=== PATIENT | female | born 1970 | race Caucasian/White ===

== ENCOUNTER 2016-09-07 11:02 | Emergency (ER) | payer OTHER ==
[2016-09-07 12:30] VITALS: BP 122/73
--- NOTE | 2016-09-07 12:59 | UC ---
Throat Pain/Nasal Kenneth HPI - HPI Summary HPI Summary: has not felt well from before new years day--last night she noticed that it was difficult to swallow. talked with Sanjuanita Tovar in Dr. [place] office who advised her to get a swab for strep--unsure about fevers as she is going through menopause and gets hot flashes - History of Current Complaint Chief Complaint: UCGeneralIllness Stated Complaint: SORE THROAT Time Seen by Provider: 09/07/16 12:38 Hx Obtained From: Patient Hx Last Menstrual Period: July 2016 ?: No Onset/Duration: Gradual Onset, Lasting Days, Worse Since - last night Severity: Mild Pain Intensity: 5 Pain Scale Used: 0-10 Numeric Cough: None Associated Signs & Symptoms: Positive: Dysphagia Related History: Smoking, Prior ENT Surgery - Allergies/Home Medications Allergies/Adverse Reactions: Allergies Allergy/AdvReac Type Severity Reaction Status Date / Time Lorazepam [From Ativan] Allergy See Comment Verified 09/07/16 12:19 Oxycodone Allergy Shakes Verified 09/07/16 12:19 Penicillins [PCN] Allergy Unknown Verified 09/07/16 12:19 Reaction Details Sulfa Antibiotics Allergy Bleeding Verified 09/07/16 12:19 Sulfamethoxazole Allergy Bleeding Verified 09/07/16 12:19 w/Trimethoprim [From Bactrim] Cephalexin [From Keflex] AdvReac Diarrhea Verified 09/07/16 12:19 Clindamycin AdvReac Diarrhea Verified 09/07/16 12:19 Codeine AdvReac Altered Verified 09/07/16 12:19 Mental Status Erythromycin AdvReac Diarrhea Verified 09/07/16 12:19 Morphine AdvReac Headache Verified 09/07/16 12:19 Penicillin G AdvReac Diarrhea Verified 09/07/16 12:19 Tetracycline AdvReac Diarrhea Verified 09/07/16 12:19 ISOTOPOL GLUCOSE Allergy PT HAD Uncoded 09/07/16 12:19 VOMITING & FLU LIKE SX Home Medications: Home Medications ALPRAZolam TAB* [Xanax TAB*] 0.25 mg PO BID PRN 09/07/16 [History Confirmed 12/19] PMH/Surg Hx/FS Hx/Imm Hx Previously Healthy: No - Tonsil cancer Endocrine History Of: Denies: Diabetes Cardiovascular History Of: Denies: Hypertension, Pacemaker/ICD GI/ History Of: Denies: Renal Disease Neurological History Of: Reports: Migraine Psychological History Of: Reports: Anxiety, Depression - Surgical History Surgical History: Yes Surgery Procedure, Year, and Place: FIBROID TUMOR REMOVAL 2010 [place]. BREAST - BIOPSY - W/ MARKER PLACED - BENIGN - Family History Known Family History: Positive: Cardiac Disease, Hypertension - Social History Occupation: Employed Full-time Lives: With Family Alcohol Use: None Substance Use Type: None Smoking Status (MU): Former Smoker Type: Cigarettes Amount Used/How Often: 1/4 PPD Length of Time of Smoking/Using Tobacco: ON AND OFF 20 YRS Have You Smoked in the Last Year: No When Did the Patient Quit Smoking/Using Tobacco: 2007 - Immunization History Most Recent Influenza Vaccination: Not this season Most Recent Tetanus Shot: UNK Most Recent Pneumonia Vaccination: Never Review of Systems Constitutional: Fatigue Skin: Negative Eyes: Negative ENT: Sore Throat Respiratory: Negative Cardiovascular: Negative Gastrointestinal: Vomiting - one time with headache a couple of days ago Genitourinary: Negative Motor: Negative Neurovascular: Negative Musculoskeletal: Negative Neurological: Negative Psychological: Negative All Other Systems Reviewed And Are Negative: Yes Physical Exam Triage Information Reviewed: Yes Appearance: Well-Appearing, No Pain Distress, Thin Vital Signs: Initial Vital Signs Temp 99.6 F 09/07/16 12:21 Pulse 79 09/07/16 12:21 Resp 16 09/07/16 12:21 BP 122/73 09/07/16 12:21 Pulse Ox 100 09/07/16 12:21 Vital Signs Reviewed: Yes Eye Exam: Normal Eyes: Positive: Conjunctiva Clear ENT Exam: Normal ENT: Positive: Normal ENT inspection, Hearing grossly normal, Pharynx normal, TMs normal. Negative: Nasal congestion, Nasal drainage, Trismus, Muffled/ hoarse voice Neck exam: Normal Neck: Positive: Supple, Nontender, No Lymphadenopathy Respiratory Exam: Normal Respiratory: Positive: Chest non-tender, Lungs clear, Normal breath sounds, No respiratory distress, No accessory muscle use Cardiovascular Exam: Normal Cardiovascular: Positive: RRR, No Murmur, Pulses Normal, Brisk Capillary Refill Musculoskeletal Exam: Normal Musculoskeletal: Positive: Strength Intact, ROM Intact, No Edema Neurological Exam: Normal Neurological: Positive: Alert, Muscle Tone Normal Psychological Exam: Normal Skin Exam: Normal Diagnostics - Laboratory Diagnostic Studies Completed/Ordered: RST(-) Throat Pain/Nasal Course/Dx - Course Course Of Treatment: follow with Dr. Wallace this afternoon as planned - Differential Dx/Diagnosis Differential Diagnosis/HQI/PQRI: Otitis Media, Pharyngitis, Sinusitis, URI, Other - tonsillar cancer, dysphagia Provider Diagnoses: Dysphagia Discharge - Discharge Plan Condition: Good Disposition: HOME Patient Education Materials: Dysphagia (ED) Referrals: Ariel Wallace MD [Medical Doctor] - 09/07/16 3:15 am Mert Richard NP [Primary Care Provider] -
== END 2016-09-07 13:54 | disposition home or self-care (01) ==
LOC: UCCORT 11:02
DX: R13.10 Dysphagia, unspecified (principal); Z88.5 Allergy status to narcotic agent; Z88.0 Allergy status to penicillin; Z88.2 Allergy status to sulfonamides; Z88.8 Allergy status to other drugs, medicaments and biological substances; Z85.818 Personal history of malignant neoplasm of other sites of lip, oral cavity, and pharynx; F41.9 Anxiety disorder, unspecified; F32.9 Major depressive disorder, single episode, unspecified; Z87.891 Personal history of nicotine dependence
CPT/HCPCS: 87651; 99211; G0463

== ENCOUNTER 2017-01-29 11:31 | Emergency (ER) | payer OTHER ==
[2017-01-29 13:24] VITALS: BP 125/82
--- NOTE | 2017-01-29 14:15 | UC ---
Respiratory Complaint HPI - HPI Summary HPI Summary: ST, Cough, congestion, body aches - History of Current Complaint Chief Complaint: UCRespiratory Stated Complaint: COUGH Time Seen by Provider: 01/29/17 13:32 Hx Obtained From: Patient Hx Last Menstrual Period: 01/04/17 ?: No Onset/Duration: Gradual Onset, Lasting Days, Still Present Timing: Constant Severity Initially: Moderate Severity Currently: Moderate Pain Intensity: 5 Pain Scale Used: 0-10 Numeric Character: Cough: Nonproductive Aggravating Factors: Nothing Alleviating Factors: Nothing Associated Signs And Symptoms: Positive: Chills, Pleuritic Chest Pain, Hemoptysis - thick green with a strwak of blood - Allergies/Home Medications Allergies/Adverse Reactions: Allergies Allergy/AdvReac Type Severity Reaction Status Date / Time Penicillins [PCN] Allergy Rash Verified 01/29/17 13:26 Sulfa Antibiotics Allergy Bleeding Verified 01/29/17 13:26 Sulfamethoxazole Allergy Bleeding Verified 01/29/17 13:26 w/Trimethoprim [From Bactrim] Cephalexin [From Keflex] AdvReac Diarrhea Verified 01/29/17 13:26 Clindamycin AdvReac Diarrhea Verified 01/29/17 13:26 Codeine AdvReac Altered Verified 01/29/17 13:26 Mental Status Erythromycin AdvReac Diarrhea Verified 01/29/17 13:26 Lorazepam [From Ativan] AdvReac See Comment Verified 01/29/17 13:26 Morphine AdvReac Headache Verified 01/29/17 13:26 Oxycodone AdvReac Shakes Verified 01/29/17 13:26 Penicillin G AdvReac Diarrhea Verified 01/29/17 13:26 Tetracycline AdvReac Diarrhea Verified 01/29/17 13:26 ISOTOPOL GLUCOSE Allergy PT HAD Uncoded 09/07/16 12:19 VOMITING & FLU LIKE SX Home Medications: Home Medications Ranitidine HCl [Zantac 75] 75 mg PO BID 01/29/17 [History Confirmed 01/29/17] PMH/Surg Hx/FS Hx/Imm Hx Previously Healthy: No - Tonsil cancer Endocrine History Of: Denies: Diabetes Cardiovascular History Of: Denies: Hypertension, Pacemaker/ICD GI/ History Of: Denies: Renal Disease Neurological History Of: Reports: Migraine Psychological History Of: Reports: Anxiety, Depression - Surgical History Surgical History: Yes Surgery Procedure, Year, and Place: uterine FIBROID TUMOR REMOVAL 2010 [place] - Family History Known Family History: Positive: Cardiac Disease, Hypertension - Social History Occupation: Employed Full-time Lives: With Family Alcohol Use: None Substance Use Type: None Smoking Status (MU): Former Smoker Type: Cigarettes Amount Used/How Often: 1/4 PPD Length of Time of Smoking/Using Tobacco: ON AND OFF 20 YRS Have You Smoked in the Last Year: No When Did the Patient Quit Smoking/Using Tobacco: 2007 - Immunization History Most Recent Influenza Vaccination: Not this season Most Recent Tetanus Shot: UNK Most Recent Pneumonia Vaccination: Never Review of Systems Constitutional: Negative, Chills, Fatigue Skin: Negative Eyes: Negative ENT: Sore Throat Respiratory: Cough Cardiovascular: Negative Gastrointestinal: Negative Genitourinary: Negative Motor: Negative Neurovascular: Negative Musculoskeletal: Negative Neurological: Negative Psychological: Negative All Other Systems Reviewed And Are Negative: Yes Physical Exam Triage Information Reviewed: Yes Appearance: Well-Appearing, No Pain Distress, Well-Nourished Vital Signs: Initial Vital Signs Temp 100.1 F 01/29/17 13:18 Pulse 88 01/29/17 13:18 Resp 16 01/29/17 13:18 BP 125/82 01/29/17 13:18 Pulse Ox 100 01/29/17 13:18 Vital Signs Reviewed: Yes Eye Exam: Normal Eyes: Positive: Conjunctiva Clear ENT Exam: Normal ENT: Positive: Normal ENT inspection, Hearing grossly normal, Pharynx normal, TMs normal. Negative: Nasal congestion, Nasal drainage, Trismus, Muffled/ hoarse voice Dental Exam: Normal Neck exam: Normal Neck: Positive: Supple, Nontender, No Lymphadenopathy Respiratory Exam: Normal Respiratory: Positive: Chest non-tender, Lungs clear, Normal breath sounds, No respiratory distress, No accessory muscle use Cardiovascular Exam: Normal Cardiovascular: Positive: RRR, No Murmur, Pulses Normal, Brisk Capillary Refill Abdominal Exam: Normal Abdomen Description: Positive: Nontender, No Organomegaly, Soft Bowel Sounds: Positive: Present Musculoskeletal Exam: Normal Musculoskeletal: Positive: Strength Intact, ROM Intact, No Edema Neurological Exam: Normal Neurological: Positive: Alert, Muscle Tone Normal Psychological Exam: Normal Skin Exam: Normal UC Diagnostic Evaluation - Laboratory O2 Sat by Pulse Oximetry: 100 Respiratory Course/Dx - Course Course Of Treatment: increase fluids, rest albuterol, concider flonase and zyrtec, follow with pcp - Differential Dx/Diagnosis Differential Diagnosis/HQI/PQRI: Asthma, Bronchitis, Exacerbation Of COPD, Laryngitis, Lower Resp Infection, Sinusitis Provider Diagnoses: Bronchospasm, enviromental allergies Discharge - Discharge Plan Condition: Stable Disposition: HOME Prescriptions: Albuterol HFA INHALER* [Ventolin HFA Inhaler*] 2 puff INH Q4H PRN #1 mdi PRN Reason: cough/chest tightness Cetirizine-Pseudoephedrine [Zyrtec-D Allergy/Congesti] 1 tab PO BID #30 tab Fluticasone NASAL SPRAY 50MCG* [Flonase NASAL SPRAY 50MCG*] 2 spray BOTH NARES DAILY #1 btl Patient Education Materials: Bronchospasm (ED) Referrals: Mert Richard [employer] [Primary Care Provider] - 5 Days
== END 2017-01-29 14:14 | disposition home or self-care (01) ==
LOC: UCCORT 11:31
DX: J98.01 Acute bronchospasm (principal); Z87.891 Personal history of nicotine dependence; J30.2 Other seasonal allergic rhinitis
CPT/HCPCS: 81003; 99212; G0463

== ENCOUNTER 2017-02-01 17:53 | Emergency (ER) | payer OTHER ==
[2017-02-01 18:56] VITALS: BP 120/77
--- NOTE | 2017-02-01 19:18 | UC ---
Respiratory Complaint HPI - HPI Summary HPI Summary: pt c/o worsening productive cough, night sweats and chills X 1 week. Pt has history of cancer of the tonsils and had last chemotherapy treatment 12+ months ago. - History of Current Complaint Chief Complaint: UCRespiratory Stated Complaint: COUGH/WAS SEEN HERE RECENTLY-SYMS NOT IMPROVING Time Seen by Provider: 02/01/17 18:59 Hx Obtained From: Patient Hx Last Menstrual Period: 01/07/17 ?: No Onset/Duration: Gradual Onset, Lasting Days Timing: Constant Severity Initially: Mild Severity Currently: Mild Character: Cough: Productive - yellwo sputum Aggravating Factors: Deep Breaths, Recumbent Position Alleviating Factors: Nothing Associated Signs And Symptoms: Positive: Nasal Congestion - Risk Factors Pulmonary Embolism Risk Factors: Malignancy - tonsil cancer, last chemo 2015 - Allergies/Home Medications Allergies/Adverse Reactions: Allergies Allergy/AdvReac Type Severity Reaction Status Date / Time Penicillins [PCN] Allergy Rash Verified 02/01/17 18:45 Sulfa Antibiotics Allergy Bleeding Verified 02/01/17 18:45 Sulfamethoxazole Allergy Bleeding Verified 02/01/17 18:45 w/Trimethoprim [From Bactrim] Cephalexin [From Keflex] AdvReac Diarrhea Verified 02/01/17 18:45 Clindamycin AdvReac Diarrhea Verified 02/01/17 18:45 Codeine AdvReac Altered Verified 02/01/17 18:45 Mental Status Erythromycin AdvReac Diarrhea Verified 02/01/17 18:45 Lorazepam [From Ativan] AdvReac See Comment Verified 02/01/17 18:45 Morphine AdvReac Headache Verified 02/01/17 18:45 Oxycodone AdvReac Shakes Verified 02/01/17 18:45 Penicillin G AdvReac Diarrhea Verified 02/01/17 18:45 Tetracycline AdvReac Diarrhea Verified 02/01/17 18:45 ISOTOPOL GLUCOSE Allergy PT HAD Uncoded 02/01/17 18:45 VOMITING & FLU LIKE SX PMH/Surg Hx/FS Hx/Imm Hx Previously Healthy: Yes Cancer History: Other - tonsil Other Cancer History: tonsil - Surgical History Surgical History: Yes Surgery Procedure, Year, and Place: uterine FIBROID TUMOR REMOVAL 2010 [place] , feeding tube placement & removal - Family History Known Family History: Positive: Cardiac Disease, Hypertension - Social History Alcohol Use: None Substance Use Type: None Smoking Status (MU): Former Smoker Type: Cigarettes Amount Used/How Often: 1/4 PPD Length of Time of Smoking/Using Tobacco: ON AND OFF 20 YRS Have You Smoked in the Last Year: No When Did the Patient Quit Smoking/Using Tobacco: 2007 - Immunization History Most Recent Influenza Vaccination: Not this season Most Recent Tetanus Shot: UNK Most Recent Pneumonia Vaccination: Never Review of Systems Constitutional: Other - night sweats Skin: Negative Eyes: Negative ENT: Other - PND, nasal congestion Respiratory: Cough Cardiovascular: Negative Gastrointestinal: Negative Genitourinary: Negative Motor: Negative Neurovascular: Negative Musculoskeletal: Negative Neurological: Negative Psychological: Negative All Other Systems Reviewed And Are Negative: Yes Physical Exam Triage Information Reviewed: Yes Appearance: Well-Appearing Vital Signs: Initial Vital Signs Temp 100.2 F 02/01/17 18:46 Pulse 99 02/01/17 18:46 Resp 16 02/01/17 18:46 BP 120/77 02/01/17 18:46 Pulse Ox 100 02/01/17 18:46 Eye Exam: Normal ENT Exam: Other - PND ENT: Positive: TM bulging - bilateral Neck exam: Normal Respiratory Exam: Other Respiratory: Positive: Rhonchi Cardiovascular Exam: Normal Musculoskeletal Exam: Normal Neurological Exam: Normal Psychological Exam: Normal Skin Exam: Normal UC Diagnostic Evaluation - Laboratory O2 Sat by Pulse Oximetry: 100 Respiratory Course/Dx - Course Course Of Treatment: I discussed with the pt the findings on her chest xray and recommended that she follow up with her oncologist, Dr. Carl as soon as possible. Pt verbalized understanding and agreed to plan of care. Lungs: There are no infiltrates. There is a subtle 7 mm opacity projecting over the. periphery of the right lung apex which was not clearly evident previously. Suggest. follow-up CT imaging the chest. Lung gray otherwise clear. Pleura: There are no pleural effusions. Other: None. IMPRESSION: POSSIBLE SUBCENTIMETER RIGHT UPPER LOBE NODULE. SUGGEST FOLLOW-UP CT IMAGING. - Differential Dx/Diagnosis Differential Diagnosis/HQI/PQRI: Bronchitis Provider Diagnoses: Bronchitis. (new finding on chest xray referred to oncologist zurdo) Discharge - Discharge Plan Condition: Stable Disposition: HOME Prescriptions: Azithromycin TAB* [Zithromax TAB (Z-ABHIJEET) 250 mg #6 tabs] 2 tab PO .TODAY, THEN 1 DAILY #1 abhijeet Benzonatate CAP* [Tessalon 100 MG CAP*] 100 mg PO TID PRN #24 cap PRN Reason: Cough predniSONE TAB* [Deltasone TAB*] 20 mg PO DAILY #4 tab Patient Education Materials: Acute Bronchitis (ED) Referrals: Mert Richrad, [facility] / COOK [Primary Care Provider] - If Needed
--- NOTE | 2017-02-01 19:45 | RAD ---
INDICATION: Cough. Fever. Short of breath. COMPARISON: Chest x-ray September 23, 2014 TECHNIQUE: PA and lateral dual-energy views were obtained. FINDINGS: Bones/Soft Tissues: There are no acute bony findings. Cardiomediastinal: The cardiomediastinal silhouette is normal. Lungs: There are no infiltrates. There is a subtle 7 mm opacity projecting over the periphery of the right lung apex which was not clearly evident previously. Suggest follow-up CT imaging the chest. Lung gray otherwise clear. Pleura: There are no pleural effusions. Other: None IMPRESSION: POSSIBLE SUBCENTIMETER RIGHT UPPER LOBE NODULE. SUGGEST FOLLOW-UP CT IMAGING.
== END 2017-02-01 19:52 | disposition home or self-care (01) ==
LOC: UCCORT 17:53
DX: J40 Bronchitis, not specified as acute or chronic (principal); R91.8 Other nonspecific abnormal finding of lung field; Z85.79 Personal history of other malignant neoplasms of lymphoid, hematopoietic and related tissues; Z87.891 Personal history of nicotine dependence
CPT/HCPCS: 71020; 99212; G0463

== ENCOUNTER 2017-07-29 17:05 | Emergency (ER) | payer OTHER ==
--- NOTE | 2017-07-29 17:51 | UC ---
Skin Complaint HPI - History of Current Complaint Chief Complaint: UCGeneralIllness Time Seen by Provider: 07/29/17 17:50 Stated Complaint: THRUSH/YEAST INFECTION ALL OVER Hx Last Menstrual Period: 01/07/17 - Allergy/Home Medications Allergies/Adverse Reactions: Allergies Allergy/AdvReac Type Severity Reaction Status Date / Time Penicillins [PCN] Allergy Rash Verified 02/03/17 08:05 Sulfa Antibiotics Allergy Bleeding Verified 02/03/17 08:05 Sulfamethoxazole Allergy Bleeding Verified 02/03/17 08:05 w/Trimethoprim [From Bactrim] Cephalexin [From Keflex] AdvReac Diarrhea Verified 02/03/17 08:05 Clindamycin AdvReac Diarrhea Verified 02/03/17 08:05 Codeine AdvReac Altered Verified 02/03/17 08:05 Mental Status Erythromycin AdvReac Diarrhea Verified 02/03/17 08:05 Lorazepam [From Ativan] AdvReac See Comment Verified 02/03/17 08:05 Morphine AdvReac Headache Verified 02/03/17 08:05 Oxycodone AdvReac Shakes Verified 02/03/17 08:05 Penicillin G AdvReac Diarrhea Verified 02/03/17 08:05 Tetracycline AdvReac Diarrhea Verified 02/03/17 08:05 ISOTOPOL GLUCOSE Allergy PT HAD Uncoded 02/03/17 08:05 VOMITING & FLU LIKE SX PMH/Surg Hx/FS Hx/Imm Hx - Surgical History Surgical History: Yes Surgery Procedure, Year, and Place: uterine FIBROID TUMOR REMOVAL 2010 [place] , feeding tube placement & removal , chemo port inserted + removed, left breast biopsy - Family History Known Family History: Positive: Cardiac Disease, Hypertension - Social History Alcohol Use: None Substance Use Type: None Smoking Status (MU): Former Smoker Type: Cigarettes Amount Used/How Often: 1/4 PPD Length of Time of Smoking/Using Tobacco: ON AND OFF 20 YRS Have You Smoked in the Last Year: No When Did the Patient Quit Smoking/Using Tobacco: 2007 - Immunization History Most Recent Influenza Vaccination: Not this season Most Recent Tetanus Shot: UNK Most Recent Pneumonia Vaccination: Never Discharge - Discharge Plan Condition: Stable Disposition: HOME Referrals: Mert Richard NP [Primary Care Provider] -
[2017-07-29 17:57] VITALS: BP 137/88
--- NOTE | 2017-07-29 18:06 | UC ---
Complaint Female HPI - HPI Summary HPI Summary: 47 y/o female PMHX of Throat cancer presents to the urgent care c/o oral thrush and a rash around lips for the past 2 weeks. She also c/o white vaginal discharge for the past 3 weeks after she finished taking Z-yun Rx for sinusitis. Pt reports She used to get oral thrush due to radiation therapy for her throat cancer. However her lips are dry, cracked and rash is getting worse since yesterday. She also states mild frequency on urination. Pt denies fever, URI, SOB, sore throat,chest pain, abdominal pain,pelvic pain or lower back pain, N/V/D, Hx of STD's. No PAP for the past 5 years. Pt states she has not been sexually active fo rthe past year. LMP: 01/07/2017 - History Of Current Complaint Chief Complaint: UCGeneralIllness Stated Complaint: THRUSH/YEAST INFECTION ALL OVER Time Seen by Provider: 07/29/17 17:50 Hx Obtained From: Patient Hx Last Menstrual Period: 01/07/17 ?: No Onset/Duration: Gradual Onset, Lasting Weeks - 3, Still Present, Worse Since - yesterday Timing: Constant Severity Initially: Mild Severity Currently: Moderate Pain Intensity: 4 - oral thrush Pain Scale Used: 0-10 Numeric Character: Burning Aggravating Factor(s): Other - eating Alleviating Factor(s): Other - cocunut oil Associated Signs And Symptoms: Positive: Vaginal Discharge. Negative: Fever, Back Pain, Genital Swelling, Genital Blisters - Risk Factors Ectopic Risk Factor: Negative Ovarian Torsion Risk Factor: Negative - Allergies/Home Medications Allergies/Adverse Reactions: Allergies Allergy/AdvReac Type Severity Reaction Status Date / Time Penicillins [PCN] Allergy Rash Verified 07/29/17 17:51 Sulfa Antibiotics Allergy Bleeding Verified 07/29/17 17:51 Sulfamethoxazole Allergy Bleeding Verified 07/29/17 17:51 w/Trimethoprim [From Bactrim] Cephalexin [From Keflex] AdvReac Diarrhea Verified 07/29/17 17:51 Clindamycin AdvReac Diarrhea Verified 07/29/17 17:51 Codeine AdvReac Altered Verified 07/29/17 17:51 Mental Status Erythromycin AdvReac Diarrhea Verified 07/29/17 17:51 Lorazepam [From Ativan] AdvReac See Comment Verified 07/29/17 17:51 Morphine AdvReac Headache Verified 07/29/17 17:51 Oxycodone AdvReac Shakes Verified 07/29/17 17:51 Penicillin G AdvReac Diarrhea Verified 07/29/17 17:51 Tetracycline AdvReac Diarrhea Verified 07/29/17 17:51 ISOTOPOL GLUCOSE Allergy PT HAD Uncoded 07/29/17 17:51 VOMITING & FLU LIKE SX PMH/Surg Hx/FS Hx/Imm Hx Previously Healthy: Yes GI/ History: Gastroesophageal Reflux Other GI/ History: Hiatal hernia Other Cancer History: throat cancer - Surgical History Surgical History: Yes Surgery Procedure, Year, and Place: uterine FIBROID TUMOR REMOVAL 2010 [place] , feeding tube placement & removal , chemo port inserted + removed, left breast biopsy - Family History Known Family History: Positive: Cardiac Disease, Hypertension Family History: Stroke - Social History Occupation: Employed Full-time Lives: With Family Alcohol Use: None Substance Use Type: None Smoking Status (MU): Former Smoker Type: Cigarettes Amount Used/How Often: 1/4 PPD Length of Time of Smoking/Using Tobacco: ON AND OFF 20 YRS Have You Smoked in the Last Year: No When Did the Patient Quit Smoking/Using Tobacco: 2007 - Immunization History Most Recent Influenza Vaccination: Not this season Most Recent Tetanus Shot: UNK Most Recent Pneumonia Vaccination: Never Review of Systems Constitutional: Negative Skin: Rash - around lips Eyes: Negative ENT: Negative, Other - oral thrush Respiratory: Negative Cardiovascular: Negative Gastrointestinal: Negative Genitourinary: Frequency, Vaginal/Penile Discharge - white Motor: Negative Neurovascular: Negative Musculoskeletal: Negative Neurological: Negative Psychological: Negative Is Patient Immunocompromised?: No All Other Systems Reviewed And Are Negative: Yes Physical Exam Triage Information Reviewed: Yes Vital Signs: Initial Vital Signs Temp 98 F 07/29/17 17:52 Pulse 88 07/29/17 17:52 Resp 16 07/29/17 17:52 BP 137/88 07/29/17 17:52 Pulse Ox 100 07/29/17 17:52 - Additional Comments vital signs: reviewed General: Well developed, well nourished female sitting in the examining table w/ o any apparent distress. Head: Normocephalic, no lesions. Eyes: PERRLA, EOM's full, conjunctivae clear, fundi grossly normal. Ears: EAC's clear, TM's normal. Nose: Mucosa normal, no obstruction. Oral: tongue with mild creamy yellowish plaques adherent to the to tongue. lips with cracks, erythematous papules ab=nd crusted fssures radiating from the angles of mouth. Throat: Clear, no exudates, no lesions. Neck: Supple, no masses, no thyromegaly, no bruits. Chest: Lungs clear, no rales, no rhonchi, no wheezes. Heart: RR, no murmurs, no rubs, no gallops. Abdomen: Soft, no tenderness, no masses, BS normal. : Normal, no lesions, no discharge, no hernias noted. Pelvic: I was assisted by Nurse Polly. External genitalia within normal limits. There is no lesions there is no masses noted. Speculum exam: The vaginal reeves are within normal limits w/ normal white vaginal discharge and fishy odor, no the lesions or rashes. The cervix is closed with no lesions or masses. There is no CMT's, and no adnexal masses. Sample sent Lab for affirm panel Rectal: No lesions, no hemorrhoids, Back: Normal curvature, no tenderness. Extremities: FROM, no deformities, no edema, no erythema. Neuro: Physiological, no localizing findings. Skin: Normal, no rashes, no lesions noted. Complaint Female Dx - Course Course Of Treatment: 47 y/o female PMHX of Throat cancer presents to the urgent care c/o oral thrush and a rash around lips for the past 2 weeks. She also c/o white vaginal discharge for the past 3 weeks after she finished taking Z-yun Rx for sinusitis. Pt reports She used to get oral thrush due to radiation therapy for her throat cancer. However her lips are dry, cracked and rash is getting worse since yesterday. She also states mild frequency on urination. Pt denies fever, URI, SOB, sore throat,chest pain, abdominal pain,pelvic pain or lower back pain, N/V/D, Hx of STD's. No PAP for the past 5 years. Pt states she has not been sexually active fo rthe past year. LMP: 01/07/2017. Hx obtained. Pt with oral candidiasis and angular chelitis on examination. UA ordered, result: negative. Pt probably with Bacterial vaginosis on pelvic examination. Pt Rx Metronidazole vaginal cream. Advised to f/u with SLOT SERVICE SPECIALIST for PAP. Specimen were sent to lab, Advised she will be notified if any abnormal result from lab. Pt also Rx Diflucan PO and Nystatin/triamcinolone cream to alleviate symptoms of oral candidiasis since she skyla't tolerate oropharyngeal liquid due to sensitivity s/p radiation. Pt explained D/C instructions. Pt understood and agreed with plan of care. Pt understood and agreed with plan of care. - Differential Dx/Diagnosis Differential Diagnosis/HQI/PQRI: Cervicitis, Pelvic Inflammatory Disease, Renal Colic, Sexually Transmitted Disease, Ureteral Stone, Urinary Tract Infection Provider Diagnoses: 1- Bacterial vaginosis. 2- Oral thrush. 3-Angular chelitis Discharge - Discharge Plan Condition: Stable Disposition: HOME Prescriptions: Fluconazole [Diflucan 150 MG (NF)] 150 mg PO ONCE #2 tab metroNIDAZOLE VAGINAL 0.75%* 1 applic VAGINAL BEDTIME #1 yun Nystatin-Triamcinolone [Nystatin/Triamcinolone 994647-7.1 Unit/gm-%] 1 oin EX BID #1 oin Patient Education Materials: Bacterial Vaginosis (ED), Oral Candidiasis (ED) Referrals: Mert Richard, MANUAL LATHE OPERATOR [Primary Care Provider] - 1 Week Additional Instructions: 1-Please f/u with SLOT SERVICE SPECIALIST for a PAP for regular screening 2- Please take medications as directed to alleviate symptoms. 3- Specimen were sent to lab, if anything abnormality you will receive a call from us for further treatment. 4- F/u with PCP for further evaluation and treatment if not improvement or worsening of symptoms
--- NOTE | 2017-08-01 07:07 | ED ---
Progress - Progress Note Progress Note: trich/sophie/gardernella negative. call patient. Course/Dx - Course Course Of Treatment: 47 y/o female PMHX of Throat cancer presents to the urgent care c/o oral thrush and a rash around lips for the past 2 weeks. She also c/o white vaginal discharge for the past 3 weeks after she finished taking Z-yun Rx for sinusitis. Pt reports She used to get oral thrush due to radiation therapy for her throat cancer. However her lips are dry, cracked and rash is getting worse since yesterday. She also states mild frequency on urination. Pt denies fever, URI, SOB, sore throat,chest pain, abdominal pain,pelvic pain or lower back pain, N/V/D, Hx of STD's. No PAP for the past 5 years. Pt states she has not been sexually active fo rthe past year. LMP: 01/07/2017. Hx obtained. Pt with oral candidiasis and angular chelitis on examination. UA ordered, result: negative. Pt probably with Bacterial vaginosis on pelvic examination. Pt Rx Metronidazole vaginal cream. Advised to f/u with STRETCH PRESS OPERATOR for PAP. Specimen were sent to lab, Advised she will be notified if any abnormal result from lab. Pt also Rx Diflucan PO and Nystatin/triamcinolone cream to alleviate symptoms of oral candidiasis since she skyla't tolerate oropharyngeal liquid due to sensitivity s/p radiation. Pt explained D/C instructions. Pt understood and agreed with plan of care. Pt understood and agreed with plan of care. - Diagnoses Provider Diagnoses: Yeast dermatitis
== END 2017-07-29 19:04 | disposition home or self-care (01) ==
LOC: UCCORT 17:05
DX: B37.0 Candidal stomatitis (principal); K13.0 Diseases of lips; N76.0 Acute vaginitis; K21.9 Gastro-esophageal reflux disease without esophagitis; K44.9 Diaphragmatic hernia without obstruction or gangrene; Z85.818 Personal history of malignant neoplasm of other sites of lip, oral cavity, and pharynx; Z88.1 Allergy status to other antibiotic agents; Z88.5 Allergy status to narcotic agent; Z88.0 Allergy status to penicillin; Z88.2 Allergy status to sulfonamides; Z87.891 Personal history of nicotine dependence
CPT/HCPCS: 81003; 87480; 87510; 87660; 99212; G0463

== ENCOUNTER 2017-08-22 09:56 | Emergency (ER) | payer OTHER ==
[2017-08-22 11:03] VITALS: BP 117/75
--- NOTE | 2017-08-22 11:37 | UC ---
Respiratory Complaint HPI - HPI Summary HPI Summary: 47 y/o female presents to the urgent care c/o head congestion sinus pain,, body aches, productive cough with yellowish phlegm, nasal congestion for the past 3 days. Pt reports also mild GAXIOLA. Pt has not taking anything to alleviate symptoms. Pt denies fever, sore throat, SOB, wheezing, chest pain, abdominal pain, N/V/D - History of Current Complaint Chief Complaint: UCRespiratory Stated Complaint: CONGESTION HEAVY CHEST UPPER BACK PAIN COUGH Time Seen by Provider: 08/22/17 10:56 Hx Obtained From: Patient Hx Last Menstrual Period: 01/07/17 ?: No Onset/Duration: Gradual Onset, Lasting Days - 3 days, Still Present Timing: Constant Severity Initially: Mild Severity Currently: Mild Pain Intensity: 2 Pain Scale Used: 0-10 Numeric Character: Cough: Productive, Sputum Description: - yellowish Aggravating Factors: Nothing Alleviating Factors: Nothing Associated Signs And Symptoms: Positive: URI, Nasal Congestion. Negative: Fever , Chills, Wheezing - Risk Factors Pulmonary Embolism Risk Factors: Negative Cardiac Risk Factors: Negative Pseudomonas Risk Factors: Negative Tuberculosis Risk Factors: Negative - Allergies/Home Medications Allergies/Adverse Reactions: Allergies Allergy/AdvReac Type Severity Reaction Status Date / Time Penicillins [PCN] Allergy Rash Verified 08/22/17 10:57 Sulfa Antibiotics Allergy Bleeding Verified 08/22/17 10:57 Sulfamethoxazole Allergy Bleeding Verified 08/22/17 10:57 w/Trimethoprim [From Bactrim] Cephalexin [From Keflex] AdvReac Diarrhea Verified 08/22/17 10:57 Clindamycin AdvReac Diarrhea Verified 08/22/17 10:57 Codeine AdvReac Altered Verified 08/22/17 10:57 Mental Status Erythromycin AdvReac Diarrhea Verified 08/22/17 10:57 Lorazepam [From Ativan] AdvReac See Comment Verified 08/22/17 10:57 Morphine AdvReac Headache Verified 08/22/17 10:57 Oxycodone AdvReac Shakes Verified 08/22/17 10:57 Penicillin G AdvReac Diarrhea Verified 08/22/17 10:57 Tetracycline AdvReac Diarrhea Verified 08/22/17 10:57 ISOTOPOL GLUCOSE Allergy PT HAD Uncoded 08/22/17 10:57 VOMITING & FLU LIKE SX Home Medications: Home Medications B12 Shot ONCE 08/22/17 [History] Cyanocobalamin [B12] 1,000 mcg PO DAILY 08/22/17 [History Confirmed 08/22/17] Oreganomax 1 cap PO BID 08/22/17 [History] PMH/Surg Hx/FS Hx/Imm Hx Previously Healthy: Yes Other GI/ History: Uterine Fibroids Psychological History: Depression - Surgical History Surgical History: Yes Surgery Procedure, Year, and Place: uterine FIBROID TUMOR REMOVAL 2010 [place] , feeding tube placement & removal , chemo port inserted + removed, left breast biopsy - Family History Known Family History: Positive: Cardiac Disease, Hypertension Family History: Stroke - Social History Occupation: Employed Full-time Lives: With Family Alcohol Use: None Substance Use Type: None Smoking Status (MU): Former Smoker Type: Cigarettes Amount Used/How Often: 1/4 PPD Length of Time of Smoking/Using Tobacco: ON AND OFF 20 YRS Have You Smoked in the Last Year: No When Did the Patient Quit Smoking/Using Tobacco: 2007 - Immunization History Most Recent Influenza Vaccination: Not this season Most Recent Tetanus Shot: UNK Most Recent Pneumonia Vaccination: Never Review of Systems Constitutional: Negative Skin: Negative Eyes: Negative ENT: Nasal Discharge, Sinus Congestion Respiratory: Cough Cardiovascular: Negative Gastrointestinal: Negative Genitourinary: Negative Motor: Negative Neurovascular: Negative Musculoskeletal: Negative Neurological: Headache Psychological: Negative Is Patient Immunocompromised?: No All Other Systems Reviewed And Are Negative: Yes Physical Exam Triage Information Reviewed: Yes Vital Signs: Initial Vital Signs Temp 99.3 F 08/22/17 10:59 Pulse 84 08/22/17 10:59 Resp 18 08/22/17 10:59 BP 117/75 08/22/17 10:59 Pulse Ox 98 08/22/17 10:59 - Additional Comments VITAL SIGNS: Reviewed. GENERAL: Patient is a well developed and nourished female who is sitting comfortable in the examining table. Patient is not in any acute respiratory distress. HEAD AND FACE: No signs of trauma. No ecchymosis, hematomas or skull depressions. No sinus tenderness. edematous erythematous nasal mucosa with yellowish discharge, EYES: PERRLA, EOMI x 2, No injected conjunctiva, clear watery eyes, no nystagmus. No photophobia. EARS: Hearing grossly intact. Ear canals and tympanic membranes are within normal limits. MOUTH: Positive pharynx with erythema, no exudates,no palatal petechiae. no B/ L tonsillar enlargement Uvula in midline. NECK: Supple, trachea is midline, Positive anterior cervical lymphadenopathy, no JVD, no carotid bruit, no c-spine tenderness, neck with full ROM. No meningeal signs, no Kernig's or brudzinskis signs. CHEST: Symmetric, no tenderness at palpation LUNGS: Clear to auscultation bilaterally. No wheezing or crackles. CVS: Regular rate and rhythm, S1 and S2 present, no murmurs or gallops appreciated. ABDOMEN: Soft, non-tender. No signs of distention. No rebound no guarding, and no masses palpated. Bowel sounds are normal. EXTREMITIES: FROM in all major joints, no edema, no cyanosis or clubbing. NEURO: Alert and oriented x 3. No acute neurological deficits. Speech is normal and follows commands. SKIN: Dry and warm UC Diagnostic Evaluation - Laboratory O2 Sat by Pulse Oximetry: 98 Respiratory Course/Dx - Course Course Of Treatment: 47 y/o female presents to the urgent care c/o head congestion sinus pain,, body aches, productive cough with yellowish phlegm, nasal congestion for the past 3 days. Pt reports also mild GAXIOLA. Pt has not taking anything to alleviate symptoms. Pt denies fever, sore throat, SOB, wheezing, chest pain, abdominal pain, N/V/D. Hx obtained. Pt with an upper respiratory infection on examination. Influenza A&b ordered, result: negative.Pt Rx fluticasone nasal spray and Tessalon PO to alleviates symptoms. Advised on hand washing to avoid spreading. Pt advised to rest, eat well and avoid strenuous exercise. If symptoms do not improve or worsen advised to return to the urgent care or f/u with her PCP for further evaluation and treatment. Pt understood and agreed - Differential Dx/Diagnosis Differential Diagnosis/HQI/PQRI: Asthma, Bronchitis, Influenza, Laryngitis, Lower Resp Infection, Sinusitis, Other - URI, pharyngitis Provider Diagnoses: 1- Acute upper respiratory infection. 1- cough Discharge - Discharge Plan Condition: Stable Disposition: HOME Prescriptions: Benzonatate CAP* [Tessalon 100 MG CAP*] 100 mg PO TID PRN #15 cap PRN Reason: Cough Fluticasone NASAL SPRAY 50MCG* [Flonase NASAL SPRAY 50MCG*] 2 spray BOTH NARES DAILY #1 btl Patient Education Materials: Upper Respiratory Infection (ED) Referrals: Mert Richard INSPECTOR B[employer]KE [employer]ING [Primary Care Provider] - If Needed Additional Instructions: 1- Please increase fluid intake and rest. 2-Use Flonase as directed to help drain fluid. Also buy saline drops to clear sinuses 3-Take Tessalon PO to alleviates cough 4-Return to the clinic or PCP if symptoms do not improve for further management and treatment
== END 2017-08-22 12:50 | disposition home or self-care (01) ==
LOC: UCCORT 09:56
DX: J06.9 Acute upper respiratory infection, unspecified (principal); R05 Cough; D25.9 Leiomyoma of uterus, unspecified; F32.9 Major depressive disorder, single episode, unspecified; Z88.3 Allergy status to other anti-infective agents; Z88.5 Allergy status to narcotic agent; Z88.0 Allergy status to penicillin; Z88.2 Allergy status to sulfonamides; Z87.891 Personal history of nicotine dependence
CPT/HCPCS: 87502; 99212; G0463

== ENCOUNTER 2017-08-30 13:58 | Emergency (ER) | payer OTHER ==
[2017-08-30 15:31] VITALS: BP 153/88
--- NOTE | 2017-08-30 15:49 | UC ---
Headache HPI - HPI Summary HPI Summary: 47 year old female presents with thrush and chest congestion. - History Of Current Complaint Chief Complaint: UCRespiratory Stated Complaint: HEAD CONGESTION/ORAL COMPLAINT Time Seen by Provider: 08/30/17 15:42 Hx Obtained From: Patient Hx Last Menstrual Period: 01/07/17 Onset/Duration: Sudden Onset Onset Of Symptoms: Gradual Pain Scale Used: 0-10 Numeric - 4 Timing: Constant Character: Sharp Aggravating Factor(s): Nothing Allevating Factor(s): Nothing - Risk Factors SAH Risk Factors: Negative Meningitis Risk Factors: Negative SDH Risk Factors: Negative Temporal Arteritis Risk Factors: Negative - Allergies/Home Medications Allergies/Adverse Reactions: Allergies Allergy/AdvReac Type Severity Reaction Status Date / Time Penicillins [PCN] Allergy Rash Verified 08/30/17 15:31 Sulfa Antibiotics Allergy Bleeding Verified 08/30/17 15:31 Sulfamethoxazole Allergy Bleeding Verified 08/30/17 15:31 w/Trimethoprim [From Bactrim] Cephalexin [From Keflex] AdvReac Diarrhea Verified 08/30/17 15:31 Clindamycin AdvReac Diarrhea Verified 08/30/17 15:31 Codeine AdvReac Altered Verified 08/30/17 15:31 Mental Status Erythromycin AdvReac Diarrhea Verified 08/30/17 15:31 Lorazepam [From Ativan] AdvReac See Comment Verified 08/30/17 15:31 Morphine AdvReac Headache Verified 08/30/17 15:31 Oxycodone AdvReac Shakes Verified 08/30/17 15:31 Penicillin G AdvReac Diarrhea Verified 08/30/17 15:31 Tetracycline AdvReac Diarrhea Verified 08/30/17 15:31 ISOTOPOL GLUCOSE Allergy PT HAD Uncoded 08/30/17 15:31 VOMITING & FLU LIKE SX PMH/Surg Hx/FS Hx/Imm Hx - Surgical History Surgical History: Yes Surgery Procedure, Year, and Place: uterine FIBROID TUMOR REMOVAL 2010 [place] , feeding tube placement & removal , chemo port inserted + removed, left breast biopsy - Family History Known Family History: Positive: Cardiac Disease, Hypertension Family History: Stroke - Social History Alcohol Use: None Substance Use Type: None Smoking Status (MU): Former Smoker Type: Cigarettes Amount Used/How Often: 1/4 PPD Length of Time of Smoking/Using Tobacco: ON AND OFF 20 YRS Have You Smoked in the Last Year: No When Did the Patient Quit Smoking/Using Tobacco: 2007 - Immunization History Most Recent Influenza Vaccination: Not this season Most Recent Tetanus Shot: UNK Most Recent Pneumonia Vaccination: Never Review of Systems Constitutional: Negative Skin: Negative Eyes: Negative ENT: Other - thrush Respiratory: Cough Cardiovascular: Negative Gastrointestinal: Negative Genitourinary: Negative Motor: Negative Neurovascular: Negative Musculoskeletal: Negative Neurological: Negative Psychological: Negative All Other Systems Reviewed And Are Negative: Yes Physical Exam Triage Information Reviewed: Yes Vital Signs: Initial Vital Signs Temp 37.3 C 08/30/17 15:26 Pulse 100 08/30/17 15:26 Resp 17 08/30/17 15:26 BP 153/88 08/30/17 15:26 Pulse Ox 100 08/30/17 15:26 Vital Signs Reviewed: Yes Eye Exam: Normal ENT: Positive: Other - thrush Dental Exam: Normal Neck exam: Normal Neck: Positive: 1 Respiratory: Positive: Wheezing Cardiovascular Exam: Normal Abdominal Exam: Normal Musculoskeletal Exam: Normal Neurological Exam: Normal Psychological Exam: Normal Skin Exam: Normal Headache Course/Dx - Differential Dx/Diagnosis Provider Diagnoses: thrush. wheezing Discharge - Discharge Plan Condition: Stable Disposition: HOME Prescriptions: Albuterol HFA INHALER* [Ventolin HFA Inhaler*] 1 puff INH Q6H PRN #1 mdi PRN Reason: Cough Chlorhexidine MOUTHWASH 0.12%* [Peridex Mouth Wash 0.12%*] 15 ml MT TID #1 btl Nystatin SUSPENSION ORAL SYR* 10 ml PO QID #1 bottle Patient Education Materials: Oral Candidiasis (ED), Allergic Rhinitis (ED) Referrals: Mert Richard NP [Primary Care Provider] - Ariel Wallace MD [Medical Doctor] -
== END 2017-08-30 15:57 | disposition home or self-care (01) ==
LOC: UCCORT 13:58
DX: B37.9 Candidiasis, unspecified (principal); R06.2 Wheezing; Z87.891 Personal history of nicotine dependence
CPT/HCPCS: 99212; G0463

== ENCOUNTER 2018-05-11 19:19 | Emergency (ER) | payer OTHER ==
--- NOTE | 2018-05-11 21:05 | UC ---
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 Samuel. She states that every time she gets ill she worries that it could be something to do with cancer. About 3 weeks ago, she had a choking spell on some food and thinks she may have aspirated. Since then, she's had some ongoing cough with chest congestion and clear sputum. She wants to ensure it is not aspiration pneumonia. She also reports having had head congestion with clear drainage. In addition to this, 2 days ago she developed a sore throat. She goes on to complain of having subjective chills, abdominal distention 3 days which is now much improved but no N/V/D. She complains of pressure in her ears plus some ringing in her ears. She notes that she does have chronic ringing in her ears. She also reports having a headache. She denies any vomiting diarrhea or dysuria. She has no cp or sob and no wheezing. She has a follow up appt with Dr Samuel this coming Monday as well. - History of Current Complaint Chief Complaint: UCGeneralIllness Stated Complaint: CHILLS,SORE THROAT,LOW ENERGY Time Seen by Provider: 05/11/18 20:51 Hx Obtained From: Patient Hx Last Menstrual Period: 03/21 Pain Intensity: 0 Associated Signs & Symptoms: Positive: Cough, Headache. Negative: Abdominal Pain, Chest Pain, Diarrhea, Dysuria, Fever, Hemoptysis, Nausea, SOB, Vomiting, Wheezing - Allergy/Home Medications Allergies/Adverse Reactions: Allergies Allergy/AdvReac Type Severity Reaction Status Date / Time cephalexin Allergy Diarrhea Verified 05/11/18 20:30 clindamycin Allergy Diarrhea Verified 05/11/18 20:30 codeine Allergy Altered Verified 05/11/18 20:30 Mental Status erythromycin base Allergy Diarrhea Verified 05/11/18 20:30 lorazepam Allergy See Comment Verified 05/11/18 20:30 morphine Allergy Headache Verified 05/11/18 20:30 oxycodone Allergy Shakes Verified 05/11/18 20:30 Penicillins Allergy Rash Verified 05/11/18 20:30 Sulfa (Sulfonamide Allergy Bleeding Verified 05/11/18 20:30 Antibiotics) sulfamethoxazole Allergy Bleeding Verified 05/11/18 20:30 [From Bactrim] Tetracyclines Allergy Diarrhea Verified 05/11/18 20:30 trimethoprim [From Bactrim] Allergy Bleeding Verified 05/11/18 20:30 ISOTOPOL GLUCOSE Allergy PT HAD Uncoded 08/30/17 15:31 VOMITING & FLU LIKE SX Home Medications: Home Medications Aspirin/Caffeine [Bc Arthritis Powder Packet] 1 each PO BID PRN 05/11/18 [ History Confirmed 05/11/18] PMH/Surg Hx/FS Hx/Imm Hx - Additional Past Medical History Additional PMH: Tonsilar [place]. Ringing of the ears, [place] - Surgical History Surgical History: Yes Surgery Procedure, Year, and Place: uterine FIBROID TUMOR REMOVAL 2010 [place] , feeding tube placement & removal , chemo port inserted + removed, left breast biopsy - Family History Known Family History: Positive: Cardiac Disease, Hypertension Family History: Stroke - Social History Occupation: Employed Full-time Lives: With Family Alcohol Use: None Substance Use Type: None Smoking Status (MU): Former Smoker Type: Cigarettes Amount Used/How Often: 1/4 PPD Length of Time of Smoking/Using Tobacco: ON AND OFF 20 YRS Have You Smoked in the Last Year: No When Did the Patient Quit Smoking/Using Tobacco: 2007 - Immunization History Most Recent Influenza Vaccination: Not this season Most Recent Tetanus Shot: UNK Most Recent Pneumonia Vaccination: Never Vaccination Up to Date: Yes Review of Systems Constitutional: Chills Skin: Negative Eyes: Negative ENT: Sore Throat, Ear Ache - pressure, Nasal Discharge, Sinus Congestion Respiratory: Cough Cardiovascular: Negative Gastrointestinal: Negative Genitourinary: Negative Motor: Negative Neurovascular: Negative Musculoskeletal: Negative Neurological: Headache Psychological: Negative Is Patient Immunocompromised?: No All Other Systems Reviewed And Are Negative: Yes Physical Exam Triage Information Reviewed: Yes Vital Signs: Initial Vital Signs Temp 99.4 F 05/11/18 20:34 Pulse 88 05/11/18 20:34 Resp 18 05/11/18 20:34 BP 145/94 05/11/18 20:34 Pulse Ox 100 05/11/18 20:34 Diagnostics - Laboratory Diagnostic Studies Completed/Ordered: RAPID STREP=NEG. - Radiology No standard instances Xray Interpretation: No Acute Changes - WET READ=NAD Course/Dx - Course Course Of Treatment: Patient is nontoxic. Rapid strep is negative. CXR is unremarkable. No acute abdomen. Her physical exam is reassuring and she already has a f/u appt with Dr Samuel this coming Monday. Her BP was mildly elevated at triage. Repeat BP has improved to 138/90. I think the BP is visit related.Pt is anxious about her CA hx and worries that any illness could mean it has reoccured. There is no indication for ER transfer and can f/u as scheduled. - Differential Dx - Multi-Symptom Provider Diagnoses: General malaise Discharge - Sign-Out/Discharge Documenting (check all that apply): Patient Departure All imaging exams completed and their final reports reviewed: No - Discharge Plan Condition: Stable Disposition: HOME Patient Education Materials: Upper Respiratory Infection (ED), Pharyngitis (ED) , Acute Cough (ED) Referrals: Mert Richard NP [Primary Care Provider] - If Needed Naresh Arciniega MD [Medical Doctor] - 3 Days - Billing Disposition and Condition Condition: STABLE Disposition: Home
[2018-05-11 21:44] VITALS: BP 138/90
--- NOTE | 2018-05-12 08:14 | RAD ---
Indication: Cough, congestion. 2 views of the chest including dual energy PA views are reviewed. No mediastinal shift is noted. Lung gray appear hyperinflated with no evidence of pleural fluid, pneumonia or pneumothorax. The heart is of normal size and configuration. Bony structures are grossly unremarkable. Overall no changes noted since February 01, 2017. IMPRESSION: Hyperinflated lung gray with no active cardiopulmonary disease. R0
--- NOTE | 2018-05-12 09:05 | UC ---
- Progress Note Progress Note: CXR official read negative Discharge - Sign-Out/Discharge Documenting (check all that apply): Post-Discharge Follow Up All imaging exams completed and their final reports reviewed: Yes - Discharge Plan Condition: Stable Disposition: HOME Patient Education Materials: Pharyngitis (ED), Upper Respiratory Infection (ED) , Acute Cough (ED) Referrals: Naresh Arciniega MD [Medical Doctor] - 3 Days Mert Richard NP [Primary Care Provider] - If Needed - Billing Disposition and Condition Condition: STABLE Disposition: Home
== END 2018-05-11 22:02 | disposition home or self-care (01) ==
LOC: UCCORT 19:19
DX: R53.81 Other malaise (principal); Z85.818 Personal history of malignant neoplasm of other sites of lip, oral cavity, and pharynx; Z87.891 Personal history of nicotine dependence; Z88.3 Allergy status to other anti-infective agents; Z88.5 Allergy status to narcotic agent; Z88.8 Allergy status to other drugs, medicaments and biological substances; Z88.0 Allergy status to penicillin; Z88.2 Allergy status to sulfonamides
CPT/HCPCS: 71046; 87651; 99211; G0463

== ENCOUNTER 2019-01-30 12:01 | Emergency (ER) | payer OTHER ==
[2019-01-30 12:34] VITALS: BP 142/84
--- NOTE | 2019-01-30 12:59 | ED ---
Skin Complaint - HPI Summary HPI Summary: 48 yr old female with tick bite. The tick was removed this morning. The tick was not engorged. She is not sure when the tick attached. She has a dog and a cat. The area has very localized redness to it. She has multiple antibiotic allergies. - History of Current Complaint Chief Complaint: UCBiteInjury Time Seen by Provider: 01/30/19 12:44 Stated Complaint: TICK CONCERN Hx Last Menstrual Period: 03/21 Pain Intensity: 5 - Allergy/Home Medications Allergies/Adverse Reactions: Allergies Allergy/AdvReac Type Severity Reaction Status Date / Time cephalexin Allergy Diarrhea Verified 01/30/19 12:35 clindamycin Allergy Diarrhea Verified 01/30/19 12:35 codeine Allergy Altered Verified 01/30/19 12:35 Mental Status erythromycin base Allergy Diarrhea Verified 01/30/19 12:35 lorazepam Allergy See Comment Verified 01/30/19 12:35 morphine Allergy Headache Verified 01/30/19 12:35 oxycodone Allergy Shakes Verified 01/30/19 12:35 Penicillins Allergy Rash Verified 01/30/19 12:35 Sulfa (Sulfonamide Allergy Bleeding Verified 01/30/19 12:35 Antibiotics) sulfamethoxazole Allergy Bleeding Verified 01/30/19 12:35 [From Bactrim] Tetracyclines Allergy Diarrhea Verified 01/30/19 12:35 trimethoprim [From Bactrim] Allergy Bleeding Verified 01/30/19 12:35 ISOTOPOL GLUCOSE Allergy PT HAD Uncoded 01/30/19 12:35 VOMITING & FLU LIKE SX Home Medications: Home Medications Levothyroxine Sodium 25 mcg PO DAILY 01/30/19 [History Confirmed 01/30/19] PMH/Surg Hx/FS Hx/Imm Hx Endocrine/Hematology History: Denies: Hx Diabetes Cardiovascular History: Denies: Hx Hypertension, Hx Pacemaker/ICD History: Denies: Hx Renal Disease Sensory History: Reports: Hx Contacts or Glasses, Hx Hearing Aid - MILENA, 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 Opthamlomology History: Reports: Hx Contacts or Glasses Neurological History: Reports: Hx Headaches, Hx Migraine Psychiatric History: Reports: Hx Anxiety, Hx Depression Denies: Hx Panic Disorder - Cancer History Cancer Type, Location and Year: tonsilar cancer w/ chemo & radiation September 2014 Hx Chemotherapy: Yes Hx Radiation Therapy: Yes - Left Tonsil-not to breast Hx Palliative Cancer Treatment: No - Surgical History Surgery Procedure, Year, and Place: uterine FIBROID TUMOR REMOVAL 2010 [place] , feeding tube placement & removal , chemo port inserted + removed, left breast biopsy Hx Anesthesia Reactions: No Infectious Disease History: Yes Infectious Disease History: Reports: Hx Shingles - age 17 Denies: Hx Clostridium Difficile, Hx Hepatitis, Hx Human Immunodeficiency Virus (HIV), Hx of Known/Suspected MRSA, Hx Tuberculosis, Hx Known/Suspected VRE , Hx Known/Suspected VRSA, History Other Infectious Disease, Traveled Outside the [place] in Last 30 Days - Family History Known Family History: Positive: Cardiac Disease, Hypertension Family History: Stroke - Social History Lives: With Family Alcohol Use: Rare Substance Use Type: Reports: None Smoking Status (MU): Former Smoker Type: Cigarettes Amount Used/How Often: 1/4 PPD Length of Time of Smoking/Using Tobacco: ON AND OFF 20 YRS Have You Smoked in the Last Year: No Review of Systems Constitutional: Negative Positive: Other - tick bite All Other Systems Reviewed And Are Negative: Yes Physical Exam Triage Information Reviewed: Yes Vital Signs On Initial Exam: Initial Vitals Temp Pulse Resp BP Pulse Ox 99.5 F 101 16 142/84 100 01/30/19 12:29 01/30/19 12:29 01/30/19 12:29 01/30/19 12:29 01/30/19 12:29 Vital Signs Reviewed: Yes Appearance: Positive: Well-Appearing, No Pain Distress Skin: Positive: Warm, Skin Color Reflects Adequate Perfusion, Other - the right posterior shoulder area is with a localized tick bite reaction. The area is with just a less than 1 cm localized area of redness. There is no expanding redness, erythema migrans or bulls eye rash. No remainin foreign body seen. The tick was brought in a bag and it is not engorged. Head/Face: Positive: Normal Head/Face Inspection Eyes: Positive: EOMI, COLE ENT: Positive: Normal ENT inspection Neck: Positive: Nontender Respiratory/Lung Sounds: Positive: Clear to Auscultation, Breath Sounds Present Cardiovascular: Positive: RRR Abdomen Description: Negative: Distended Musculoskeletal: Positive: Strength/ROM Intact Neurological: Positive: Sensory/Motor Intact, Alert, Oriented to Person Place, Time, CN Intact II-III Psychiatric: Positive: Normal Diagnostics - Vital Signs Vital Signs Temp Pulse Resp BP Pulse Ox 01/30/19 12:29 99.5 F 101 16 142/84 100 - Laboratory Lab Statement: Any lab studies that have been ordered have been reviewed, and results considered in the medical decision making process. Course/Dx - Course Course Of Treatment: 48 yr old with localized reaction to tick bite. No antibiotics at this time. She has multiple allergies as well. She was told to take a picture of the area with cell phone and to monitor the area for any increasing redness rash and to follow up with primary doctor or return here for any changes or concerns. - Diagnoses Provider Diagnoses: Tick bite, Hypertension Discharge - Sign-Out/Discharge Documenting (check all that apply): Patient Departure All imaging exams completed and their final reports reviewed: No Studies - Discharge Plan Condition: Good Disposition: HOME Patient Education Materials: Tick Bite (ED), Hypertension (ED) Referrals: Mert Richard NP [Primary Care Provider] - 2 Days Additional Instructions: Be sure to see your primary care doctor within two days for a blood pressure recheck and another look at your tick bite area. - Billing Disposition and Condition Condition: GOOD Disposition: Home
== END 2019-01-30 13:07 | disposition home or self-care (01) ==
LOC: UCCORT 12:01
DX: S40.261A Insect bite (nonvenomous) of right shoulder, initial encounter (principal); I10 Essential (primary) hypertension; W57.XXXA Bitten or stung by nonvenomous insect and other nonvenomous arthropods, initial encounter; Z87.891 Personal history of nicotine dependence; Z79.899 Other long term (current) drug therapy; Z88.1 Allergy status to other antibiotic agents; Z88.5 Allergy status to narcotic agent; Z88.0 Allergy status to penicillin; Z88.2 Allergy status to sulfonamides; Z88.8 Allergy status to other drugs, medicaments and biological substances
CPT/HCPCS: 99211; G0463

== ENCOUNTER 2019-03-26 20:33 | Emergency (ER) | payer OTHER ==
[2019-03-26 20:45] VITALS: BP 134/80
--- NOTE | 2019-03-26 21:22 | UC ---
Minor Trauma HPI - HPI Summary HPI Summary: 48-year-old female who was playing with her grandchildren this evening approximately 2 hours prior to arrival when she had been running with them and fell and that they tackled her she complains of pain to the lower right ribs and side underneath her breast. - History of Current Complaint Chief Complaint: UCGeneralIllness Stated Complaint: RIB PAIN Time Seen by Provider: 03/26/19 20:39 Hx Obtained From: Patient Hx Last Menstrual Period: ~a year ago ?: No Onset/Duration: Sudden Onset Onset Of Pain: Post Accident Severity Initially: Mild Severity Currently: Moderate Pain Intensity: 8 Mechanism Of Injury: Fall From A Standing Position - Patient states that she was running with her grandkids playing soccer and she fell and then states that they were wrestling with her and then they tackled her. Aggravating Factor(s): Movement Alleviating Factor(s): Rest - Allergies/Home Medications Allergies/Adverse Reactions: Allergies Allergy/AdvReac Type Severity Reaction Status Date / Time cephalexin Allergy Diarrhea Verified 03/26/19 20:39 clindamycin Allergy Diarrhea Verified 03/26/19 20:39 codeine Allergy Altered Verified 03/26/19 20:39 Mental Status erythromycin base Allergy Diarrhea Verified 03/26/19 20:39 lorazepam Allergy See Comment Verified 03/26/19 20:39 morphine Allergy Headache Verified 03/26/19 20:39 oxycodone Allergy Shakes Verified 03/26/19 20:39 Penicillins Allergy Rash Verified 03/26/19 20:39 Sulfa (Sulfonamide Allergy Bleeding Verified 03/26/19 20:39 Antibiotics) sulfamethoxazole Allergy Bleeding Verified 03/26/19 20:39 [From Bactrim] Tetracyclines Allergy Diarrhea Verified 03/26/19 20:39 trimethoprim [From Bactrim] Allergy Bleeding Verified 03/26/19 20:39 ISOTOPOL GLUCOSE Allergy PT HAD Uncoded 03/26/19 20:39 VOMITING & FLU LIKE SX PMH/Surg Hx/FS Hx/Imm Hx Previously Healthy: Yes Endocrine History: Thyroid Disease Cancer History: Other - Tonsillar cancer. - Surgical History Surgical History: Yes Surgery Procedure, Year, and Place: uterine FIBROID TUMOR REMOVAL 2010 [place] , feeding tube placement & removal , chemo port inserted + removed, left breast biopsy - Family History Known Family History: Positive: Cardiac Disease, Hypertension Family History: Stroke - Social History Alcohol Use: Rare Substance Use Type: None Smoking Status (MU): Former Smoker Type: Cigarettes Amount Used/How Often: 1/4 PPD Length of Time of Smoking/Using Tobacco: ON AND OFF 20 YRS Have You Smoked in the Last Year: No When Did the Patient Quit Smoking/Using Tobacco: 2007 - Immunization History Most Recent Influenza Vaccination: Not this season Most Recent Tetanus Shot: UNK Most Recent Pneumonia Vaccination: Never Vaccination Up to Date: Yes Review of Systems All Other Systems Reviewed And Are Negative: Yes Skin: Positive: Negative Respiratory: Positive: Negative Cardiovascular: Positive: Negative Motor: Positive: Negative Neurovascular: Positive: Negative Musculoskeletal: Positive: Other: - Patient complains of pain to the right lower ribs and across underneath both breasts. She denies any head injury and no neck pain. He denies back pain. Neurological: Positive: Negative Psychological: Positive: Negative Is Patient Immunocompromised?: No Physical Exam Triage Information Reviewed: Yes Appearance: Well-Appearing, No Pain Distress, Well-Nourished Vital Signs: Initial Vital Signs Temp 99.7 F 03/26/19 20:40 Pulse 83 03/26/19 20:40 Resp 16 03/26/19 20:40 BP 134/80 03/26/19 20:40 Pulse Ox 100 03/26/19 20:40 Vital Signs Reviewed: Yes Neck: Positive: Supple, Nontender, No Lymphadenopathy - C-spine nontender Respiratory: Positive: Lungs clear, Normal breath sounds, No respiratory distress, No accessory muscle use - Mild tenderness on palpation to the right lower rib area. No crepitus, no erythema, deformity or bruising. No swelling. Cardiovascular: Positive: RRR, No Murmur, Pulses Normal, Brisk Capillary Refill Abdomen Description: Positive: Nontender, No Organomegaly, Soft. Negative: CVA Tenderness (R), CVA Tenderness (L) Bowel Sounds: Positive: Present Musculoskeletal: Positive: Strength Intact, ROM Intact, Other: - Spine is nontender on palpation, hips are nontender. Has full range of motion of her extremities. Neurological Exam: Normal Neurological: Positive: Alert, Muscle Tone Normal Psychological Exam: Normal Skin Exam: Normal Minor Trauma Course/Dx - Course Course Of Treatment: Chest x-ray as interpreted by myself and Dr. Ogden is negative. She is to apply ice to the sore areas, she may take Tylenol every 4 hours and Motrin every 8 hours for pain. Definite follow-up with her primary care provider if no improvement in 3 or 4 days. She is to go to the emergency room if she has any difficulty breathing, chest pain or worsening symptoms. The patient has been sitting comfortably in the room. - Differential Dx/Diagnosis Provider Diagnosis: Right-sided chest wall pain Discharge - Sign-Out/Discharge Documenting (check all that apply): Patient Departure All imaging exams completed and their final reports reviewed: No - Discharge Plan Condition: Fair Disposition: HOME Patient Education Materials: Chest Wall Pain (ED) Referrals: Mert Richard NP [Primary Care Provider] - Additional Instructions: May take Tylenol every 4 hours and Motrin every 8 hours for pain. Apply ice to the sore areas. Follow-up with your primary care provider if no improvement in 3 or 4 days. Go to the emergency room if you have any difficulty breathing, chest pain or shortness of breath. - Billing Disposition and Condition Condition: FAIR Disposition: Home
--- NOTE | 2019-03-27 10:41 | UC ---
- EKG/XRAY/CT Xray Comments: wet read correct Course/Dx - Diagnoses Provider Diagnoses: Right-sided chest wall pain Discharge - Sign-Out/Discharge Documenting (check all that apply): Post-Discharge Follow Up All imaging exams completed and their final reports reviewed: Yes - Discharge Plan Condition: Fair Disposition: HOME Patient Education Materials: Chest Wall Pain (ED) Referrals: Mert Richard NP [Primary Care Provider] - Additional Instructions: May take Tylenol every 4 hours and Motrin every 8 hours for pain. Apply ice to the sore areas. Follow-up with your primary care provider if no improvement in 3 or 4 days. Go to the emergency room if you have any difficulty breathing, chest pain or shortness of breath. - Billing Disposition and Condition Condition: FAIR Disposition: Home
== END 2019-03-26 21:32 | disposition home or self-care (01) ==
LOC: UCCORT 20:33
DX: R07.89 Other chest pain (principal); Z88.5 Allergy status to narcotic agent; Z85.818 Personal history of malignant neoplasm of other sites of lip, oral cavity, and pharynx; Z87.891 Personal history of nicotine dependence
CPT/HCPCS: 71046; 99211; G0463

== ENCOUNTER 2019-07-25 18:23 | Emergency (ER) | payer OTHER ==
--- OUTSIDE RECORDS SUMMARY | 2019-07-25 19:13 | XMS REPORT | Continuity of Care Document ---
:1970 External Reference #:[id number] Author Name Radha Astudillo NP (transmitted by agent of provider Linda Truong) Address [address] [facility], [place] [address] Care Team Providers Name Role Phone Mert Richard NP - Family Care Team Information Apartment Coordinator [phone] Problems Active Problems Provider Date Malignant tumor of tonsil Dmitri Arciniega M.D. Onset: 01/05/2015 Oropharyngeal dysphagia Dmitri Arciniega M.D. Onset: 01/05/2015 Headache Dmitri Arciniega M.D. Onset: 08/31/2015 Localized swelling, mass and lump, head Dmitri Arciniega M.D. Onset: 05/23 Sensorineural hearing loss Dmitri Arciniega M.D. Onset: 01/09/2017 Atypical facial pain Dmitri Arciniega M.D. Onset: 10/02/2017 Stomatitis Dmitri Arciniega M.D. Onset: 10/02/2017 Edema of larynx Dmitri Arciniega M.D. Onset: 07/16/2018 Bilateral tinnitus Dmitri Arciniega M.D. Onset: 11/20/2018 Social History Type Date Description Comments Sex Unknown Cigarette Use Quit 5 Years Ago Tobacco Use Start: Unknown Never Smoked Cigars Tobacco Use Start: Unknown Never Smoked A Pipe Smokeless Tobacco Never Used Smokeless Tobacco ETOH Use Denies alcohol use ETOH Use except for occasional social Tobacco Use Start: Unknown End: Patient is a former smoker Unknown Recreational Drug Use Denies Drug Use Tobacco Use Start: Unknown <1/2 ppd x ~25 years Tobacco Use Start: Unknown quit 2008 Smoking Status Reviewed: 02/19/19 quit 2008 Exercise Type/Frequency Does not exercise Allergies, Adverse Reactions, Alerts Active Allergies Reaction Severity Comments Date Penicillin diarrhea 09/08/2014 Tetracycline diarrhea 09/08/2014 Erythromycin diarrhea 09/08/2014 Bactrim 09/08/2014 Codeine confusion 09/08/2014 Morphine and Related headache 09/08/2014 Keflex Hives 12/04/2018 Medications Active Medications SIG Qnty Indications Ordering Date Provider Zantac 150 Maximum 150 mg by mouth 120tabs K21.9 Dmitri 02/19/2019 Strength twice a day Tessie Arciniega 150mg Tablets Nystatin 5 mL every 4 200ml K12.30 Dmitri 02/19/2019 [id number]/ML hours félix and Tessie Arciniega Suspension swallow Levothyroxine Sodium 50mcg by mouth 30tabs Walter Hatch MD 12/21/2018 daily on empty 50mcg Tablets stomach Pt is taking 2 tabs by mouth daily Xanax one by mouth up Unknown 0.25mg Tablets to two times daily as needed for anxiety Feverfew 2 po q am and 1 Unknown 380mg Capsules po q hs. Radha Capsule 1 capsule by Unknown mouth daily Hair Flewance Capsule 1 capsule by Unknown mouth daily Magnesium 1 tab by mouth Unknown daily Multi Vitamin Daily 1 by mouth every Unknown day Tablets Vitamin B12 1 by mouth every Unknown 100mcg day Tablets Medications Administered in Office Medication SIG Qnty Indications Ordering Provider Date Depomedrol 20MG Dmitri Arciniega M.D. 10/02/2017 Injection B-12 Injection Suzi Vines M.D. 08/14/2017 Injection Immunizations Description No Information Available Vital Signs Date Vital Result Comment 06/04/2019 7:50am Height 66 inches 5'6" Weight 140.00 lb Heart Rate 88 /min BP Systolic 137 mmHg BP Diastolic 90 mmHg O2 % BldC Oximetry 100 % BMI (Body Mass Index) 22.6 kg/m2 04/23/2019 10:39am Height 66 inches 5'6" Weight 136.00 lb Heart Rate 78 /min BP Systolic 140 mmHg BP Diastolic 90 mmHg Respiratory Rate 18 /min Pain Level 0 BMI (Body Mass Index) 21.9 kg/m2 Results Test Date Facility Test Result H/L Range Note Laboratory test 06/04/2019 [facility] Vitamin B6 <pending> finding [address] [place] [address] [phone] Vitamin D Total 25(Oh) <pending> Zinc Serum <pending> Selenium <pending> Vitamin B12 And Folate 06/04/2019 [facility] Vitamin B12 < pending> Serum [address] [place] [address] [phone] Folic Acid (Folate) <pending> Thyroid Panel 06/04/2019 [facility] Free T4 (Free <pending> DRIVE Thyroxine) [place] [address] [phone] Thyroxine <pending> TSH (Thyroid Stim Horm) <pending> Laboratory test finding 06/04/2019 [facility] Magnesium <pending > [address] [place] [address] [phone] Progesterone <pending> T3 Free <pending> T3 Reverse <pending> T3 Total <pending> Laboratory test 06/04/2019 [facility] Hemoglobin A1c <pending> finding [address] (Glyco HGB) [place] [address] [phone] Homocysteine <pending> Insulin Level <pending> Laboratory test 06/04/2019 [facility] Copper, Serum <pending> finding [address] [place] [address] [phone] Dhea Sulfate <pending> Estradiol <pending> Estriol Unconjugated <pending> Ferritin <pending> Laboratory test 06/04/2019 [facility] CRP High Sensitivity < pending> [place] [address] [place] [address] [phone] Anti-Thyroid 06/04/2019 [facility] Thyroperoxidase AB <pending> [place] [address] [phone] Thyroglobulin AB <pending> Laboratory test 06/04/2019 [facility] HCG <pending> finding [address] [place] [address] [phone] FSH And LH 06/04/2019 [facility] FSH (Follicle <pending> Stim Hormone) [place] [address] [phone] LH (Lutenizing Hormone) <pending> Procedures Date Code Description Status 04/23/2019 72343 Fibroptic Laryngoscopy Completed 02/19/2019 67562 Fibroptic Laryngoscopy Completed Medical Devices Description No Information Available Encounters Type Date Location Provider Dx Diagnosis Office Visit 04/23/2019 [facility], R49.0 Dysphonia 10:30a [facility] J37.0 Chronic laryngitis K12.30 Oral mucositis (ulcerative), unspecified Office Visit 02/19/2019 [facility] K12.30 Oral mucositis 11:00a Of [facility] AT Tessie Arciniega (ulcerative)[facility] unspecified R49.0 Dysphonia J37.0 Chronic laryngitis K21.9 Gastro-esophageal reflux disease without esophagitis Office Visit 12/21/2018 [facility], E03.9 Hypothyroidism, 12:00p Endocrinology of unspecified [employer] Z85.818 Prsnl hx of malig neoplm of site of lip, oral cav, & pharynx Office Visit 12/04/2018 [facility] K12.30 Oral mucositis 10:15a Of [facility] AT Tessie Arciniega (ulcerative)[facility] unspecified H90.5 Unspecified sensorineural hearing loss H93.13 Tinnitus, bilateral Z85.818 Prsnl hx of malig neoplm of site of lip, oral cav, & pharynx Assessments Date Code Description Provider 06/04/2019 R53.83 Other fatigue Radha Astudillo NP 06/04/2019 N95.1 Menopausal and female climacteric states Radha Astudillo NP 06/04/2019 G89.4 Chronic pain syndrome Radha Astudillo NP 06/04/2019 E03.9 Hypothyroidism, unspecified Radha Astudillo NP 06/04/2019 J37.0 Chronic laryngitis Radha Astudillo NP 06/04/2019 K59.00 Constipation, unspecified Radha Astudillo NP 04/23/2019 R49.0 Dysphonia Dmitri Arciniega M.D. 04/23/2019 J37.0 Chronic laryngitis Dmitri Arciniega M.D. 04/23/2019 K12.30 Oral mucositis (ulcerative), unspecified Dmitri Arciniega M.D. 02/19/2019 K12.30 Oral mucositis (ulcerative), unspecified Dmitri Arciniega M.D. 02/19/2019 R49.0 Dysphonia Dmitri Arciniega M.D. 02/19/2019 J37.0 Chronic laryngitis Dmitri Arciniega M.D. 02/19/2019 K21.9 Gastro-esophageal reflux disease without Dmitri Arciniega M.D. esophagitis 12/21/2018 E03.9 Hypothyroidism, unspecified Walter Hatch MD 12/21/2018 Z85.818 Prsnl hx of malig neoplm of site of lip, Walter Hatch MD oral cav, & pharynx 12/04/2018 K12.30 Oral mucositis (ulcerative), unspecified Dmitri Arciniega M.D. 12/04/2018 H90.5 Unspecified sensorineural hearing loss Dmitri Arciniega M.D. 12/04/2018 H93.13 Tinnitus, bilateral Dmitri Arciniega M.D. 12/04/2018 Z85.818 Personal history of malignant neoplasm of Dmitri Arciniega M.D. other sites of lip Plan of Treatment Future Appointment(s):06/25/2019 10:00 am - Radha Astudillo NP at [facility]06/04/2019 - Radha Astudillo, NPR53.83 Other fatigueFollow up:follow up in 3 weeks 45 minutesRecommendations:Fatigue is multi-factorial food sensitivities can play a role. An elimination diet is a validated approach to try to pin point food sensitivities. Increase healthy fats in the diet with cold pressed extra virgin olive oil, flax seed, hemp oil, fish oil (wild caught EPA/DHA). Nuts, seeds, avocado. Stress can play a large role in fatigue. Daily stress relaxation techniques. Sleep: sleeping 8 hours a day. Exercise: 30-60 minutes daily of exercise. Keeping your blood sugar stable removing high glycemic foods. Adrenal fatigue (HPA [place] dysregulation) - Lifestyle changes can make a difference. 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 Sleep is very important as is diet and exercise. Consider stress reduction techniques. Screening Tests: It is important to be up to date on your screening tests for your age Good Resources Dr. Aaron Qiuroga - Ketotarian Cookbook Dr. Randy Echols - two books: The Kinza protocol and her cookbook: Cooking for Life- The PaleSenionLab Way website - [email or web address] - FREE 10 week course. HIGHLY Recommend. Plus great education blg, videos, recipes. Paleo, AIP diet, FODMAP, GAPS diet Dr. Hudson two great cookbooks!! fat for fuel or KetoFast - has multiple soup healthy recipes that would begreat for you! What is AIP? The Paleo Autoimmune Protocol (AIP) is a way of eating to heal the gut wall, restore gut macarena and in doing so reduce the chronic inflammatory response of the immune systemthat results in the destruction of tissue in autoimmune diseases. The main focus of the AIP is to heal the gut wall, restore digestive function, resolve microbial imbalances, restore nutrient deficiencies and support the body??s own pathways of detoxification. To do this, foods that commonly trigger an immune response are eliminated from the diet, for a period of time until symptoms have gone into remission. If there are any particular foods that you are allergic or sensitive to, even though they??re on the foods to include list, then they need to be omitted for the time being as well. There is afocus on particularly nutrient dense foods like bone broths, fermented veggies, organ meats, oily fish and oysters and a big emphasis on having a large amount of rainbow colored veggies ( sometimes starting with cooked ones only if your digestion is struggling). So rather than solely focusing on the diagnosis and treating the symptomatic organ ?? like the thyroid for example ?? we need to put a huge emphasis on healing the gut. Of course you may still need some pharmaceutical support to get the affected organ or system functioning properly again, preventing further tissue damage and providing relief for what can be some really severe symptoms Foods that can negatively impact immune function: Lectins: Lectins are carbohydrate- binding proteins that are present in all foods but can be difficult todigest and increase gut barrier damage. Toxic lectins are found in legumes and grains. Soaking, sprouting, and fermenting decrease lectin content. Phytic Acid: phytic acid is a component of grains, seeds, and legumes that limits the activity of digestive enzymes. This can damage the gut barrier and contribute to dysbiosis. Soaking, sprouting, and fermenting decrease phytic content. Gluten: gluten evangelist component of many grain products such as wheat, barley and rye. Exposure to gluten can activate zonulin in the intestines and contribute to intestinal permeability. Lactose and Casein: certain components of milk can contribute to intestinal permeability, especially if they have gone through traditional pasteurization and homogenization. The negative effects of the resulting protein changes can be decreased, as in the case of grass fed milk from cows. Nightshades: These plants contain an alkaloid that can be detrimental to the intestinal barrier. Nightshades include tomatoes, peppers, and eggplants.N95.1 Menopausal and female climacteric statesRecommendations:Recommend hormone testing Engaging any mindfulness practice daily will also help heal your HPA axis dysregulation. guided meditation, consider [facility] christine STRESS FREE. Consider MBSR (mindfulness-Based Stress Reduction) 8 week program this year. offered in [facility] every few months. Consider FREE MBSR online program: [email or web address] Do ??4-7-8?? breathing: Breathe in through nose for 4 counts Hold your breath for 7 counts Exhale through mouth for 8 counts This combination of count ratio slows heart rate and relaxes the sympathetic nervous system. Adopt yoga practice- Available reviews of a wide range of yoga practices suggest they can reduce the impact of exaggerated stress responses and may be helpful for both anxiety and depression. In this respect, yoga functions like other self-soothing techniques , such as meditation, relaxation, exercise, or even socializing with friends. By reducing perceived stress and anxiety, yoga appears to modulate stress response systems. This, in turn, decreases physiological arousal ?? for example , reducing the heart rate, lowering blood pressure, and easing respiration. There is also evidence that yoga practices help increase heart rate variability , an indicator of the body's ability to respond to stress moreflexibly. Recommended reading: The hormone care by Claudine Jang MD Brain body diet by Claudine Jang MDG89.4 Chronic pain syndromeRecommendations:Nutrient Support for Inflammation: Foster-3 fatty acids - 2000 mg/day (non GMO, low Mercury fish oil) Turmeric - 1000 mg/day split in several doses Vitamin C 1000 - 2000 mg mg day Zinc 15 mg day N-acetyl cysteine 600 mg twice daily Vitamin D 2000 units/ day CuraPro by [employer] 750 mg - Take 1 capsule twice daily. Please take with food. Potent anti-inflammatory support for daily use or as needed. if you take this you do not need to take the turmeric Osteovantiv by [employer]. 1 cap twice daily with food. UC II collagen has been shown in clinical studies to improve joint qdaaheihT01.9 Hypothyroidism, unspecifiedRecommendations:Plan to check [id number] Chronic laryngitisRecommendations:Consider buying Instant pot (pressure cooker) Consider buying Bone FrisqM63.00 Constipation, unspecifiedRecommendations:If the digestive system is working properly, we have maximum absorption of nutrients, resulting in energy and vitality. When the digestive system is not working well, we have bloating, systemic inflammation, skin rashes, food sensitivities, constipation, abdominal discomfort, fatigue, and many other diverse non-specific symptoms such as headaches, poor mood, joint pain, muscle fatigue, etc. The digestive tract may become compromised with a diet high in refined sugar, a diet low in fiber, as well asantibiotics, medications, stress, parasitic infections, bacterial infections, nutrient deficiencies,and alcohol use. These mechanisms may promote inflammation of the intestinal tract and lead to increased intestinal permeability. What is SIBO ? SIBO occurs when the bacteria that normally live in the colon move backwards, up into the small intestine (where they are not supposed to be in high numbers) and an overgrowth develops. It can also occur when the small amount of bacteria normally present in the small intestines overgrows. When the bacteria are in the small intestine, THEY start digesting and fermenting your food (instead of YOU digesting and absorbing your food), creating gas, bloating, and malabsorption for the host. What are the symptoms? Extreme bloating (many people say they look 6months ) Constipation, diarrhea, or both Abdominal pain, tenderness, or discomfort Burping and/or farting Nausea Acid reflux Gastroparesis (like food is just sitting in stomach, won??t go down- feels like a brick in the stomach) Food sensitivities or intolerances Leaky gut Anxiety & depression (very common for SIBO ?? the LPS in the bacterial cell wall (endotoxins) increase inflammatory cytokines, which affect mood) Brain fog How do you test for SIBO? Unfortunately, insurance doesn't tend to cover this test we offer in the office. We use the company [employer] and it will test for the two types of SIBO - Methane and Hydrogen. The cost is $179. We recommend you send the test in with your payment and can ask the company for a bill that you can submit to your insurance. You can pay the testin full or they will let you split the payment into 4 payments. Please contact the company if you have any questions and review the handout we have provided for you. plan for stool test and sibo test in 4 weeks after antibiotics Functional Status Description No Information Available Mental Status Description No Information Available Referrals Refer to Dr Delgado for Referral Status Appt Date Radha Astudillo FNP-C Sent 06/04/2019 [address], [address] [place] [address] [phone]
--- OUTSIDE RECORDS SUMMARY | 2019-07-25 19:13 | XMS REPORT | Continuity of Care Document ---
:1970 External Reference #:[id number] Author Name Radha Astudillo NP (transmitted by agent of provider Sandra Arguello) Address [address], [place] [address] Care Team Providers Name Role Phone Mert Richard NP - Family Care Team Information Field Manager [phone] Problems Active Problems Provider Date Malignant tumor [...] ~25 years Tobacco Use Start: Unknown quit 2009 Smoking Status Reviewed: 07/12/19 quit 2008 Exercise Type/Frequency Does not exercise Allergies, Adverse Reactions, Alerts Active Allergies Reaction Severity Comments Date Penicillin diarrhea 09/08/2014 Tetracycline diarrhea 09/08/2014 Erythromycin diarrhea 09/08/2014 Bactrim 09/08/2014 Codeine confusion 09/08/2014 Morphine and Related headache 09/08/2014 Keflex Hives 12/04/2018 Medications Active Medications SIG Qnty Indications Ordering Provider Date Levothyroxine Sodium 50mcg by mouth 30tabs Walter Hatch MD 12/21/2018 daily on empty 50mcg Tablets stomach Pt is taking 2 tabs by mouth daily Xanax one by mouth up Unknown 0.25mg Tablets to two times daily as needed for anxiety Radha Capsule 1 capsule by Unknown mouth daily Magnesium 1 tab by mouth Unknown daily Vitamin B12 1 by mouth every Unknown 100mcg day Tablets History Medications Zantac 150 Maximum 150 mg by mouth 120tabs K21.9 Dmitri 02/19/2019 - Strength twice a day Tessie Arciniega 07/12/2019 150mg Tablets Nystatin 5 mL every 4 200ml K12.30 Dmitri 02/19/2019 - hours swish and Tessie Arciniega 07/12/2019 [id number] swallow Suspension Medications Administered in Office Medication SIG Qnty Indications Ordering Provider Date Depomedrol 20MG Dmitri Arciniega M.D. 10/02/2017 Injection B-12 Injection Suzi Vines M.D. 08/14/2017 Injection Immunizations Description No Information Available Vital Signs Date Vital Result Comment 07/12/2019 9:54am Height 66 inches 5'6" Weight 135.38 lb Heart Rate 76 /min BP Systolic 145 mmHg BP Diastolic 82 mmHg Body Temperature 97.4 F O2 % BldC Oximetry 99 % BMI (Body Mass Index) 21.8 kg/m2 06/04/2019 7:50am Height 66 inches 5'6" Weight 140.00 lb Heart Rate 88 /min BP Systolic 137 mmHg BP Diastolic 90 mmHg O2 % BldC Oximetry 100 % BMI (Body Mass Index) 22.6 kg/m2 Results Test Acquired Date Facility Test Result H/L Range Note Laboratory test 07/12/2019 [facility] T3 Free <pending> finding [address] [place] [address] [phone] T3 Reverse <pending> T3 Total <pending> Thyroid Panel 07/12/2019 [facility] Free T4 (Free <pending> DATES DRIVE Thyroxine) [place] [address] [phone] Thyroxine <pending> TSH (Thyroid Stim Horm) <pending> Celiac Hla 07/05/2019 [facility] [id number] SEE BELOW [address] [place] [address] [phone] [id number] SEE BELOW 2 Celiac Gene Pairs Present? No Celiac Gene Interpretation See Comment 3 Laboratory test 07/05/2019 [facility] T3 Reverse 16 ng/dL 10- 24 4 [place] [address] [phone] Vitamin B6 07/05/2019 [facility] Pyridoxal 6 g/L 5-[address] [facility] 5-[place] [address] [phone] Pyridoxic Acid 3 g/L 3-30 6 Laboratory test 07/05/2019 [facility] Estradiol, <10 pg/mL [address] Confirmatory, [place] [address] [phone] Transglutaminase Igg 07/05/2019 [facility] Tissue <1.2 U/mL [address] I[address] [facility] Transglutaminase [place] [address] Ab [phone] Tissue Transglutaminase IgG Ab 1.3 U/mL 9 Anti Gliadin Igg And Iga 07/05/2019 [facility] Gliadin IgG < 10.0 U 10 [place] [address] [phone] Gliadin IgA <10.0 U 11 Laboratory test 07/05/2019 [facility] Homocysteine 8 mcmol/L 12 [place] [address] [phone] Dhea Sulfate 199 g/dL 27-240 13 Estriol Unconjugated <0.07 ng/mL <0.08 14 Copper, Serum 1.06 g/mL 0.75-1.45 15 Selenium 153 ng/mL Abnormal 70-150 16 Zinc Serum 0.77 g/mL 0.66-1.10 17 Arthritis Panel 07/05/2019 [facility] Uric Acid 3.4 mg/dL Normal 2.3-6.6 [address] [place] [address] [phone] Rheumatoid Factor < 10 IU/mL Normal <15 Erythrocyte Sed Rate 6 mm/Hr Normal 0-29 Anti-Nuclear Antibody 0.5 U 18 Cyclic Citrullinated Peptide <15.6 U 19 Interpretation See Comment 20 Heavy Metal Blool 07/05/2019 [facility] Arsenic 3 ng/mL 0-12 21 [address] [place] [address] [phone] Lead 1.8 g/dL 0.0-4.9 22 Mercury <1 ng/mL 0-9 23 Cadmium 0.2 ng/mL 0.0-4.[address] [place] [address] Guardian First Name KAROLINA Diamond Guardian Last Name [facility] Venous/Capillary Heavy Metals Venous Patient Race WHITE Submitting Laboratory 25 Laboratory test 07/05/2019 [facility] CRP High 0.57 mg/L < 2.[address] [facility] [place] [address] [phone] Thyroxine 8.79 g/dL Normal 6.09-12.23 27 Ferritin 19.5 ng/mL Normal 11-307 28 T3 Free 3.20 pg/mL Normal 2.5-3.9 29 Folic Acid (Folate) 8.40 ng/mL >3.99 30 Insulin Level 6.9 mcIU/mL Normal 2.0-16.0 31 Thyroperoxidase AB 0.50 IU/mL Normal <9 32 Vitamin D Total 25(Oh) 33.1 ng/mL Normal 20-50 33 Estradiol <40 pg/mL 34 Vitamin B12 655 pg/mL Normal 180-914 35 Thyroglobulin AB 0.6 IU/mL <4.0 36 Free T4 (Free Thyroxine) 1.26 ng/dL High 0.61-1.12 37 T3 Total 134 ng/dL Normal 87-178 38 TSH (Thyroid Stim Horm) 0.03 mcIU/mL Low 0.34-5.60 39 Iron & Iron Binding 07/05/2019 [facility] Iron 34 g/dL Low 50-212 [address]acity [address] [place] [address] [phone] Unsaturated Iron Binding < 328 g/dL Total Iron Binding Capacity 343 g/dL Normal 250-450 Transferrin 245 mg/dL Normal 203-362 % Iron Saturation 10 % Low 15-55 Laboratory test 07/05/2019 [facility] Magnesium 1.9 mg/dL Normal 1.9-2.7 40 finding [address] [place] [address] [phone] Lipid Profile 07/05/2019 [facility] Triglycerides 52 mg/dL 41 (Trig/Chol/HDL) [address] [place] [address] [phone] Cholesterol 185 mg/dL 42 HDL Cholesterol 65.0 mg/dL 43 LDL Cholesterol 110 mg/dL 44 Comp Metabolic 07/05/2019 [facility] Sodium 143 mmol/L Normal 135-145 Panel [address] [place] [address] [phone] Potassium 4.1 mmol/L Normal 3.5-5.0 Chloride 107 mmol/L Normal 101-111 Co2 Carbon Dioxide 31 mmol/L Normal 22-32 Anion Gap 5 mmol/L Normal 2-11 Glucose 67 mg/dL Low 70-100 Blood Urea Nitrogen 11 mg/dL Normal 6-24 Creatinine 0.57 mg/dL Normal 0.51-0.95 BUN/Creatinine Ratio 19.3 Normal 8-20 Calcium 9.5 mg/dL Normal 8.6-10.3 Total Protein 6.1 g/dL Low 6.4-8.9 Albumin 4.3 g/dL Normal 3.2-5.2 Globulin 1.8 g/dL Low 2-4 Albumin/Globulin Ratio 2.4 Normal 1-3 Total Bilirubin 0.30 mg/dL Normal 0.2-1.0 Alkaline Phosphatase 57 U/L Normal 34-104 Alt 9 U/L Normal 7-52 Ast 11 U/L Low 13-39 Egfr Non- 112.3 >60 Egfr 135.8 >60 45 Laboratory test 07/05/2019 [facility] Progesterone 0.3 ng/mL 46 [address] [place] [address] [phone] Hemoglobin A1c (Glyco HGB) 5.3 % Normal 4.0-5.6 47 HCG 0.69 mIU/mL 48 FSH (Follicle Stim Hormone) 95.6 mIU/mL 49 LH (Lutenizing Hormone) 27.9 mIU/mL 50 CBC Auto 07/05/2019 [facility] White Blood 8.1 10^3/uL Normal 3.5-10.[address] [place] [address] [phone] Red Blood Count 4.02 10^6/uL Normal 3.70-4.87 Hemoglobin 11.7 g/dL Low 12.0-16.0 Hematocrit 35 % Normal 35-47 Mean Corpuscular Volume 88 fL Normal 80-97 Mean Corpuscular Hemoglobin 29 pg Normal 27-31 Mean Corpuscular HGB Conc 33 g/dL Normal 31-36 Red Cell Distribution Width 14 % Normal 10-15 Platelet Count 225 10^3/uL Normal 150-450 Mean Platelet Volume 9.0 fL Normal 7.4-10.4 Abs Neutrophils 6.8 10^3/uL Normal 1.5-7.7 Abs Lymphocytes 0.7 10^3/uL Low 1.0-4.8 Abs Monocytes 0.5 10^3/uL Normal 0-0.8 Abs Eosinophils 0.1 10^3/uL Normal 0-0.6 Abs Basophils 0.0 10^3/uL Normal 0-0.2 Abs Nucleated RBC 0.0 10^3/uL Granulocyte % 84.1 % Lymphocyte % 8.6 % Monocyte % 5.6 % Eosinophil % 1.3 % Basophil % 0.4 % Nucleated Red Blood Cells % 0.0 Laboratory test 06/04/2019 [facility] Hemoglobin A1c <pending> finding [address] (Glyco HGB) [place] [address] [phone] Homocysteine <pending> Insulin Level <pending> Laboratory test finding 06/04/2019 [facility] Magnesium <pending > [address] [place] [address] [phone] Progesterone <pending> T3 Free <pending> T3 Reverse <pending> T3 Total <pending> Thyroid Panel 06/04/2019 [facility] Free T4 (Free <pending> [address] DR[address] Thyroxine) [place] [address] [phone] Thyroxine <pending> TSH (Thyroid Stim Horm) <pending> Vitamin B12 And Folate 06/04/2019 [facility] Vitamin B12 < pending> Serum [address] [place] [address] [phone] Folic Acid (Folate) <pending> Laboratory test finding 06/04/2019 [facility] Vitamin B6 < pending> [address] [place] [address] [phone] Vitamin D Total 25(Oh) <pending> Zinc Serum <pending> Selenium <pending> Laboratory test 06/04/2019 [facility] Copper, Serum <pending> finding [address] [place] [address] [phone] Dhea Sulfate <pending> Estradiol <pending> Estriol Unconjugated <pending> Ferritin <pending> Laboratory test 06/04/2019 [facility] CRP High Sensitivity < pending> finding [address] [place] [address] [phone] Anti-Thyroid 06/04/2019 [facility] Thyroperoxidase AB <pending> Antibodies [place] [address] [phone] Thyroglobulin AB <pending> Laboratory test 06/04/2019 [facility] HCG <pending> finding [address] [place] [address] [phone] FSH And LH 06/04/2019 [facility] FSH (Follicle <pending> DRIVE Stim Hormone) [place] [address] [phone] LH (Lutenizing Hormone) <pending> 1 RESULT: 03,05 REFERENCE VALUE Not Applicable 2 RESULT: 03:01,03:03 DQ Serologic Equivalent: 7,9 REFERENCE VALUE Not Applicable 3 The absence of HLA celiac permissive genes would make the presence of celiac disease unlikely. ADDITIONAL INFORMATION Method: Molecular typing of HLA antigens performed using reverse SSOP and/or SSP methods, reported as serological equivalents and low to medium resolution molecular values. Test Performed by: [facility] - [address] [address] Active Directory Specialist: Zachery Lou M.D. Ph.D.; CLIA# [id number] 4 ADDITIONAL INFORMATION This test was developed and its performance characteristics determined by [facility] in a manner consistent with CLIA requirements. This test has not been cleared or approved by the U.S. Food and Drug Administration. Test Performed by: [facility] [place] [address] Active Directory Specialist: Zachery Lou M.D. Ph.D.; CLIA# [id number] 5 ADDITIONAL INFORMATION This test was developed and its performance characteristics determined by [facility] in a manner consistent with CLIA requirements. This test has not been cleared or approved by the U.S. Food and Drug Administration. 6 ADDITIONAL INFORMATION This test was developed and its performance characteristics determined by [facility] in a manner consistent with CLIA requirements. This test has not been cleared or approved by the U.S. Food and Drug Administration. Test Performed by: [facility] [place] [address] Active Directory Specialist: Zachery Lou M.D. Ph.D.; CLIA# [id number] 7 REFERENCE VALUE Premenopausal: 15-350 (E2 levels vary widely through the menstrual cycle.) Postmenopausal: <10 ADDITIONAL INFORMATION This test was developed and its performance characteristics determined by [facility] in a manner consistent with CLIA requirements. This test has not been cleared or approved by the U.S. Food and Drug Administration. Test Performed by: [facility] [place] [address] Active Directory Specialist: Zachery Lou M.D. Ph.D.; CLIA# [id number] 8 REFERENCE VALUE <4.0 (Negative) 9 REFERENCE VALUE <6.0 (Negative) Test Performed by: [facility] [place] [address] Active Directory Specialist: Zachery Lou M.D. Ph.D.; CLIA# [id number] 10 REFERENCE VALUE <20.0 (Negative) Test Performed by: [facility] [place] [place] [address] Active Directory Specialist: Zachery Lou M.D. Ph.D.; CLIA# [id number] 11 REFERENCE VALUE <20.0 (Negative) 12 REFERENCE VALUE <=13 (Fasting) ADDITIONAL INFORMATION This test was developed and its performance characteristics determined by [facility] in a manner consistent with CLIA requirements. This test has not been cleared or approved by the U.S. Food and Drug Administration. Test Performed by: [facility] - [address] [address] Active Directory Specialist: Zachery Lou M.D. Ph.D.; CLIA# [id number] 13 Test Performed by: [facility] [place] [address] Active Directory Specialist: Zachery Lou M.D. Ph.D.; CLIA# [id number] 14 Test Performed by: [facility] [place] [place] [address] Active Directory Specialist: Zachery Lou M.D. Ph.D.; CLIA# [id number] 15 ADDITIONAL INFORMATION This test was developed and its performance characteristics determined by [facility] in a manner consistent with CLIA requirements. This test has not been cleared or approved by the U.S. Food and Drug Administration. Test Performed by: [facility] [place] [place] [address] Active Directory Specialist: Zachery Lou M.D. Ph.D.; CLIA# [id number] 16 ADDITIONAL INFORMATION This test was developed and its performance characteristics determined by [facility] in a manner consistent with CLIA requirements. This test has not been cleared or approved by the U.S. Food and Drug Administration. Test Performed by: [facility] [place] [address] Active Directory Specialist: Zachery Lou M.D. Ph.D.; CLIA# [id number] 17 ADDITIONAL INFORMATION This test was developed and its performance characteristics determined by [facility] in a manner consistent with CLIA requirements. This test has not been cleared or approved by the U.S. Food and Drug Administration. Test Performed by: [facility] [place] [place] [address] Active Directory Specialist: Zachery Lou M.D. Ph.D.; CLIA# [id number] 18 REFERENCE VALUE <=1.0 (Negative) 19 REFERENCE VALUE <20.0 (Negative) 20 Tests for antibodies to dsDNA and GARTH antigens are not performed automatically unless the LUKAS result is > or = 3.0 U. Studies performed at [facility] indicate that positive LUKAS results <3.0 U are rarely accompanied by positive second order tests. Test Performed by: [facility] [place] [address] Active Directory Specialist: Zachery Lou M.D. Ph.D.; CLIA# [id number] 21 ADDITIONAL INFORMATION This test was developed and its performance characteristics determined by [facility] in a manner consistent with CLIA requirements. This test has not been cleared or approved by the U.S. Food and Drug Administration. 22 ADDITIONAL INFORMATION Testing performed by Inductively Coupled Plasma-Mass Spectrometry (ICP-MS). This test was developed and its performance characteristics determined by [facility] in a manner consistent with CLIA requirements. This test has not been cleared or approved by the U.S. Food and Drug Administration. 23 ADDITIONAL INFORMATION This test was developed and its performance characteristics determined by [facility] in a manner consistent with CLIA requirements. This test has not been cleared or approved by the U.S. Food and Drug Administration. 24 ADDITIONAL INFORMATION This test was developed and its performance characteristics determined by [facility] in a manner consistent with CLIA requirements. This test has not been cleared or approved by the U.S. Food and Drug Administration. 25 Test Performed by: [facility] - [facility] [address] [place] [address] Active Directory Specialist: Zachery Lou M.D. Ph.D.; CLIA# [id number] 26 FASTING 27 FASTING 28 FASTING 29 FASTING 30 FASTING 31 FASTING 32 FASTING 33 Total 25-Hydroxyvitamin D2 and D3 (25-OH-VitD) <10 ng/mL (severe deficiency) 10-19 ng/mL (mild to moderate deficiency) 20-50 ng/mL (optimum levels) 51-80 ng/mL (increased risk of hypercalciuria) >80 ng/mL (toxicity possible) 34 Estradiols <40 pg/mL are sent to a reference lab for low range testing. Postmenopausal Females < 20 Ovulating females: by day in cycle relative to LH Peak Follicular phase - 12 10-50 - 4 60-200 Mid-cycle - 1 120-375 Luteal phase + 2 50-155 + 6 60-260 + 12 15-115 35 Normal Range 180 to 914 Indeterminate Range 145 to 180 Deficient Range <145 36 FASTING 37 FASTING 38 FASTING 39 FASTING 40 FASTING 41 Desirable: <150 Borderline High: 150-199 High: 200-499 Very High: >500 42 Desirable: <200 Borderline High: 200-239 High: >239 43 Low: <40 Desirable: 40-60 High: >60 44 Desirable: <100 Near Optimal: 100-129 Borderline High: 130-159 High: 160-189 Very High: >189 45 Because ethnic data is not always readily available, this report includes an eGFR for both -Americans and non- Americans. The National Kidney Disease Education Program (NKDEP) does not endorse the use of the MDRD equation for patients that are not between the ages of 18 and 70, are , have extremes of body size, muscle mass, or nutritional status, or are non- or non-. According to the National Kidney Foundation, irrespective of diagnosis, the stage of the disease is based on the level of kidney function: Stage Description GFR(mL/min/1.73 m(2)) 1 Kidney damage with normal or decreased GFR 90 2 Kidney damage with mild decrease in GFR 60-89 3 Moderate decrease in GFR 30-59 4 Severe decrease in GFR 15-29 5 Kidney failure <15 (or dialysis) 46 Female reference ranges for Progesterone: Follicular phase.......0.3 - 1.5 ng/ml Mid-luteal phase.......5.2 - 18.5 ng/ml Postmenopausal.........< 0.8 ng/ml 1st trimester.........4.7 - 50.0 ng/ml 2nd trimester.........19.4 - 45.3 ng/ml 47 Therapeutic target for the treatment of diabetes mellitus patients is <7% HBA1C, and in selective patients <6.0%. Please refer to [place] [employer] diabetic care guidelines for further information. 48 <5.0 Negative 5.0 - 25.0 Indeterminate (Repeat testing recommended after 72 hours) >25.0 Positive Perimenopausal women can display HCG levels of up to 20 mIU/mL 49 Normally menstruating females - Follicular phase 3 - 9 - Mid-cycle peak 4 - 23 - Luteal phase 1 - 6 Postmenopausal females 16 - 114 50 Normally menstruating females - Follicular Phase 1 - 18 - Mid-Cycle Peak 24 - 105 - Luteal Phase 0.6 - 20 Postmenopausal females 15 - 62 Procedures Date Code Description Status 04/23/2019 36412 Fibroptic Laryngoscopy Completed 02/19/2019 14132 Fibroptic Laryngoscopy Completed Medical Devices Description No Information Available Encounters Type Date Location Provider Dx Diagnosis Office Visit 06/04/2019 [facility] Radha Astudillo NP R53.83 Other fatigue 8:00a [facility] N95.1 Menopausal and female climacteric states G89.4 Chronic pain syndrome E03.9 Hypothyroidism, unspecified J37.0 Chronic laryngitis K59.00 Constipation, unspecified Office Visit 04/23/2019 10:30a [facility], R49.0 Dysphonia [facility] J37.0 Chronic laryngitis K12.30 Oral mucositis (ulcerative), unspecified Office Visit 02/19/2019 [facility] K12.30 Oral mucositis 11:00a Of [facility] Tessie Arciniega (ulcerative), Emile unspecified R49.0 Dysphonia J37.0 Chronic laryngitis K21.9 Gastro-esophageal reflux disease without esophagitis Assessments Date Code Description Provider 07/12/2019 R53.83 Other fatigue Radha Astudillo, TAILERCPA 07/12/2019 N95.1 Menopausal and female climacteric states Radha Astudillo, TAILERCPA 07/12/2019 E03.9 Hypothyroidism, unspecified Radha Astudillo, TAILERCPA 06/04/2019 R53.83 Other fatigue Radha Astudillo, TAILERCPA 06/04/2019 N95.1 Menopausal and female climacteric states Radha Astudillo, TAILERCPA 06/04/2019 G89.4 Chronic pain syndrome Radha Astudillo, TAILERCPA 06/04/2019 E03.9 Hypothyroidism, unspecified Radha Astudillo, TAILERCPA 06/04/2019 J37.0 Chronic laryngitis Radha Astudillo, TAILERCPA 06/04/2019 K59.00 Constipation, unspecified Radha Astudillo, TAILERCPA 04/23/2019 R49.0 Dysphonia Dmitri Arciniega M.D. 04/23/2019 J37.0 Chronic laryngitis Dmitri Arciniega M.D. 04/23/2019 K12.30 Oral mucositis (ulcerative), unspecified Dmitri Arciniega M.D. 02/19/2019 K12.30 Oral mucositis (ulcerative), unspecified Dmitri Arciniega M.D. 02/19/2019 R49.0 Dysphonia Dmitri Arciniega M.D. 02/19/2019 J37.0 Chronic laryngitis Dmitri Arciniega M.D. 02/19/2019 K21.9 Gastro-esophageal reflux disease without Dmitri Arciniega M.D. esophagitis Plan of Treatment Future Appointment(s):07/22/2019 9:00 am - Ariana Echevarria N.P. at [facility]08/07/2019 10:00 am - Radha Astudillo NP at [facility]07/12/2019 - Radha Astudillo, NPR53.83 Other fatigueFollow up:follow up in 3-4 weeks (45 mins) [facility] takes two weeks back to me - call the office the ofappointment and make sure I have the results!! Go to lab in [place] - repeat your thyroid labs - hold medication. Then I will upload to portal. Or I can call you and we will decide about thyroid medication Wellevate - has been sent to your email - please sign up! Supplement recommendations. Join the portal!Recommendations:Recommend: 1. protein powder - smoothies - building a smoothie non-dairy, berries, spinach (add some leafy green), avocado - will add protein powder recommendation to wellevate 2.Iron deficiency Anemia - Iron supplement - will add to wellevate - recommendation colonoscopy - please schedule thisthrough your primary - please call Dr. 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 Hormone saliva test - [facility] As far as thyroid - we will retest in the next weekN95.1 Menopausal and female climacteric statesNew Xrays:MG Screening Mammogram, Scheduled: 07/15/19Recommendations: recommend Hormone Test [facility] - $249 Recommend referral to Ariana Echevarria NP sexual medicine Sleep isso important! Good sleep hygiene is so important Take CBD at [id number] Hypothyroidism, unspecifiedRecommendations:Plan to recheck thyroid labs - hold levothyroxine prior to labs Functional Status Description No Information Available Mental Status Description No Information Available Referrals Refer to Reason for Referral Status Appt Date Radha Astudillo FNP-C Sent 06/04/2019 [address], [address] [place] [address] [phone]
--- OUTSIDE RECORDS SUMMARY | 2019-07-25 19:13 | XMS REPORT | Continuity of Care Document ---
:1970 External Reference #:[id number] Author Name Mert Richard NNata Address [address] [place] [id number] Problems Active Problems Provider Date Migraine Mert Richard N.P. 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 Anxiety Mert Richard N.PMago Onset: 07/16/2015 Gastroesophageal reflux disease Mert Richard N.PMago Onset: 06/16/2016 Social History Type Date Description Comments Sex Unknown ETOH Use Denies alcohol use Tobacco Use Start: Unknown End: Patient is a former smoker SMOKED ON AND OFF 16-40 Unknown Allergies, Adverse Reactions, Alerts Active Allergies Reaction Severity Comments Date Penicillins 07/04/2013 Sulfa Drugs BLEEDING STOMACH 07/04/2013 Morphine TERRIBLE HEADACHE 07/04/2013 Tetracycline 07/04/2013 Erythromycin 07/04/2013 Codeine 07/04/2013 Antihistamine 07/04/2013 Medications Active Medications SIG Qnty Indications Ordering Date Provider Medical Note patient was Jose Manuel, 05/28/2019 treated in ER on Maschristiannele, N.P. 05/24/19 and diagnosed with pneumonia. She was therefore unable to fly or travel on 05/26/19. Proctofoam HC apply to affected 10gm Jose Manuel, 12/11/2018 1-1% Foam area as directed Mashelle, N.P. Nystatin apply to affected 30gm Jose Manuel, 10/19/2018 [id number]/GM area bid x 7-10 Mashelle, N.P. Ointment days Triamcinolone apply to lips 2-3 15gm Jose Manuel, 07/24/2018 Acetonide times a day as Mashelle, N.P. 0.1% Ointment directed Lab Request cbc, TSH Dx: Jose Manuel, 12/18/2017 hypothyroid, Mert, N.P. anemia B12 Fast Dissolve [place], 12/07/2017 5000mcg Mert, N.P. Tablets Dispers Alprazolam 1 by mouth twice 60tabs Jose Manuel, 07/16/2015 0.25mg Tablets a day Mert, N.P. Levothyroxine Sodium take one tablet Unknown by mouth every 50mcg Tablets day on an empty stomach Immunizations CPT Code Status Date Vaccine Lot # [id number] Refused 05/28/2019 Influenza Vac, Quadrivalent, Split, 0.5mL Dosage, Im Use [id number] Refused 06/25/2018 Influenza Vac, Quadrivalent, Split, 0.5mL Dosage, Im Use Vital Signs Date Vital Result Comment 05/28/2019 11:09am Body Temperature 99.3 F Weight 136.25 lb Heart Rate 90 /min BP Systolic 152 mmHg BP Diastolic 98 mmHg 11/23/2018 11:41am Body Temperature 97.7 F Weight 138.50 lb Heart Rate 88 /min BP Systolic 124 mmHg BP Diastolic 86 mmHg Results Description No Information Available Procedures Date Code Description Status 01/04/2018 [id number] Mammogram Completed 12/28/2016 [id number] Mammogram Completed 05/16/2016 [id number] Mammogram Completed 12/03/2015 [id number] Mammogram Completed 11/30/2015 [id number] Mammogram Completed Medical Devices Description No Information Available Encounters Description No Information Available Assessments Date Code Description Provider 05/28/2019 Z28.21 Immunization not carried out because of Mert Richard, N.P. patient refusal 05/28/2019 E03.9 Hypothyroidism, unspecified Mert Richard, N.P. 05/28/2019 J18.8 Other pneumonia, unspecified organism Mert Richard, N.P. 05/28/2019 Z91.19 Patient's noncompliance with other medical Mert Richard, N.P. treatment and regimen Plan of Treatment 05/28/2019 - Mert Richard, N.P.Z28.21 Immunization not carried out because of patient refusalComments:patient counseled about benefits of receiving flu vaccinedeclines at this time for non-specific wtkgjqH79.9 Hypothyroidism, unspecifiedComments:patient instructed not to take mother's synthroid 112mcg. Strongly encourage pt to follow-up with dr. Hatch endocrinology for dose adjustment if needed. Otherwise cont 50mcg as lhajrnwurcP26.8 Other pneumonia, unspecified organismComments:cont doxycyxline as prescribed, ibuprofen or tylenol for pain and fever. repeat CXR 3 weeksreport increasing SOB, cough or CPZ91.19 Patient's noncompliance with other medical treatment and regimenComments:counseled on importance of screening examspatient refuses colonoscopy, pap, mammo at this timeAllNew Medication:Medical Note - patient was treated in ER on 05/24/19 and diagnosed with pneumonia. She was therefore unable to fly or travel on 05/26/19. Functional Status Description No Information Available Mental Status Description No Information Available Referrals Description No Information Available
[2019-07-25 19:20] VITALS: BP 134/80
--- NOTE | 2019-07-25 19:51 | UC ---
Respiratory Complaint HPI - HPI Summary HPI Summary: Pt presents with c/o generalized malaise, cough and "chest heaviness" X 2 weeks . Pt has hx of esophageal cancer and pneumonia. - History of Current Complaint Chief Complaint: UCGeneralIllness Stated Complaint: CONGESTION, COUGH, "NOT FEELING WELL" Time Seen by Provider: 07/25/19 19:26 Hx Obtained From: Patient Hx Last Menstrual Period: ~a year ago ?: No Onset/Duration: Gradual Onset, Lasting Days Timing: Constant Severity Initially: Mild Severity Currently: Mild Pain Intensity: 0 Character: Cough: Nonproductive Aggravating Factors: Deep Breaths, Recumbent Position Alleviating Factors: Nothing Associated Signs And Symptoms: Positive: URI - Risk Factors Pulmonary Embolism Risk Factors: Malignancy - hx of esophageal cancer 4 years ago Cardiac Risk Factors: Negative Pseudomonas Risk Factors: Negative Tuberculosis Risk Factors: Negative - Allergies/Home Medications Allergies/Adverse Reactions: Allergies Allergy/AdvReac Type Severity Reaction Status Date / Time cephalexin Allergy Diarrhea Verified 07/25/19 19:20 clindamycin Allergy Diarrhea Verified 07/25/19 19:20 codeine Allergy Altered Verified 07/25/19 19:20 Mental Status erythromycin base Allergy Diarrhea Verified 07/25/19 19:20 lorazepam Allergy See Comment Verified 07/25/19 19:20 morphine Allergy Headache Verified 07/25/19 19:20 oxycodone Allergy Shakes Verified 07/25/19 19:20 Penicillins Allergy Rash Verified 07/25/19 19:20 Sulfa (Sulfonamide Allergy Bleeding Verified 07/25/19 19:20 Antibiotics) sulfamethoxazole Allergy Bleeding Verified 07/25/19 19:20 [From Bactrim] Tetracyclines Allergy Diarrhea Verified 07/25/19 19:20 trimethoprim [From Bactrim] Allergy Bleeding Verified 07/25/19 19:20 ISOTOPOL GLUCOSE Allergy PT HAD Uncoded 07/25/19 19:20 VOMITING & FLU LIKE SX Home Medications: Home Medications Iron 18 mg PO DAILY 07/25/19 [History Confirmed 07/25/19] Magnesium 30 mg PO DAILY 07/25/19 [History Confirmed 07/25/19] Vitamin D3/Vitamin K2 (Mk4) [K2 Plus D3 Tablet] 1 each PO DAILY 07/25/19 [ History Confirmed 07/25/19] PMH/Surg Hx/FS Hx/Imm Hx Previously Healthy: Yes Cancer History: Other - esophageal - Surgical History Surgical History: Yes Surgery Procedure, Year, and Place: uterine FIBROID TUMOR REMOVAL 2010 [place] , feeding tube placement & removal , chemo port inserted + removed, left breast biopsy - Family History Known Family History: Positive: Cardiac Disease, Hypertension Family History: Stroke - Social History Occupation: Employed Full-time Lives: With Family Alcohol Use: Rare Substance Use Type: None Smoking Status (MU): Former Smoker Type: Cigarettes Amount Used/How Often: 1/4 PPD Length of Time of Smoking/Using Tobacco: ON AND OFF 20 YRS Have You Smoked in the Last Year: No When Did the Patient Quit Smoking/Using Tobacco: 2007 - Immunization History Most Recent Influenza Vaccination: Not this season Most Recent Tetanus Shot: UNK Most Recent Pneumonia Vaccination: Never Vaccination Up to Date: Yes Review of Systems All Other Systems Reviewed And Are Negative: Yes Constitutional: Positive: Fatigue Skin: Positive: Negative Eyes: Positive: Other - c/o pressure behind eyes ENT: Positive: Sinus Congestion Respiratory: Positive: Cough Cardiovascular: Positive: Other - chest heaviness X 2 weeks Gastrointestinal: Positive: Negative Genitourinary: Positive: Negative Motor: Positive: Negative Neurovascular: Positive: Negative Musculoskeletal: Positive: Negative Neurological: Positive: Negative Psychological: Positive: Negative Is Patient Immunocompromised?: No Physical Exam Triage Information Reviewed: Yes Appearance: Well-Appearing Vital Signs: Initial Vital Signs Temp 99.8 F 07/25/19 19:15 Pulse 81 07/25/19 19:15 Resp 16 07/25/19 19:15 BP 134/80 07/25/19 19:15 Pulse Ox 97 07/25/19 19:15 Vital Signs Reviewed: Yes Eye Exam: Normal ENT Exam: Normal Dental Exam: Normal Neck exam: Normal Respiratory Exam: Normal Respiratory: Positive: Chest non-tender, Lungs clear, Normal breath sounds, No respiratory distress Cardiovascular Exam: Normal Cardiovascular: Positive: RRR, No Murmur Musculoskeletal Exam: Normal Neurological Exam: Normal Psychological Exam: Normal Skin Exam: Normal Diagnostics - Radiology No standard instances Radiology Interpretation Completed By: Radiologist - NAD Respiratory Course/Dx - Differential Dx/Diagnosis Differential Diagnosis/HQI/PQRI: Bronchitis, Influenza Provider Diagnosis: Chest discomfort, Cough Discharge ED - Sign-Out/Discharge Documenting (check all that apply): Patient Departure All imaging exams completed and their final reports reviewed: No - Discharge Plan Condition: Stable Disposition: HOME Patient Education Materials: Chest Pain (DC), Acute Cough (ED) Referrals: Mert Richard, DIRECTOR TELEMETRY [Primary Care Provider] - As Soon As Possible - Billing Disposition and Condition Condition: STABLE Disposition: Home - Attestation Statements Provider Attestation: I was available for consult. This patient was seen by the CELINE. The patient was not presented to, seen by, or examined by me. -Tierney
--- NOTE | 2019-07-26 10:26 | ED ---
Progress - Progress Note Progress Note: chest xray: NAD Course/Dx - Diagnoses Provider Diagnoses: Chest discomfort, Cough Discharge ED - Sign-Out/Discharge Documenting (check all that apply): Patient Departure All imaging exams completed and their final reports reviewed: Yes - Discharge Plan Condition: Stable Disposition: HOME Patient Education Materials: Chest Pain (DC), Acute Cough (ED) Referrals: Mert Richard NP [Primary Care Provider] - As Soon As Possible - Billing Disposition and Condition Condition: STABLE Disposition: Home
== END 2019-07-25 20:20 | disposition home or self-care (01) ==
LOC: UCCORT 18:23
DX: R07.89 Other chest pain (principal); R05 Cough; R53.83 Other fatigue; Z88.1 Allergy status to other antibiotic agents; Z88.5 Allergy status to narcotic agent; Z88.0 Allergy status to penicillin; Z88.2 Allergy status to sulfonamides; Z88.8 Allergy status to other drugs, medicaments and biological substances; Z87.01 Personal history of pneumonia (recurrent); Z85.01 Personal history of malignant neoplasm of esophagus; Z87.891 Personal history of nicotine dependence
CPT/HCPCS: 71046; 93005; 99211; G0463

== ENCOUNTER 2019-10-07 10:32 | Emergency (ER) | payer OTHER ==
--- NOTE | 2019-10-07 14:37 | UC ---
Cardiac HPI - HPI Summary HPI Summary: 49-year-old woman comes in with a chief complaint of right-sided chest pain. Pain started when she coughed this morning. It's on the right mid upper areas of her chest. Is worse with cough or movement and deep breathing. Patient has had some upper respiratory tract infection symptoms. She did have yellow rhinorrhea yesterday. Not a smoker. No history of COPD or asthma. No fevers. Pain has decreased since this morning. Patient reports she had a pneumonia in the past and this feels like when she had her pneumonia. - History of Current Complaint Chief Complaint: UCRespiratory Stated Complaint: chest/head/cough Time Seen by Provider: 10/07/19 14:13 Hx Last Menstrual Period: "A year ago" Pain Intensity: 0 - Allergy/Home Medications Allergies/Adverse Reactions: Allergies Allergy/AdvReac Type Severity Reaction Status Date / Time cephalexin Allergy Diarrhea Verified 10/07/19 14:08 clindamycin Allergy Diarrhea Verified 10/07/19 14:08 codeine Allergy Altered Verified 10/07/19 14:08 Mental Status erythromycin base Allergy Diarrhea Verified 10/07/19 14:08 lorazepam Allergy See Comment Verified 10/07/19 14:08 morphine Allergy Headache Verified 10/07/19 14:08 oxycodone Allergy Shakes Verified 10/07/19 14:08 Penicillins Allergy Rash Verified 10/07/19 14:08 Sulfa (Sulfonamide Allergy Bleeding Verified 10/07/19 14:08 Antibiotics) sulfamethoxazole Allergy Bleeding Verified 10/07/19 14:08 [From Bactrim] Tetracyclines Allergy Diarrhea Verified 10/07/19 14:08 trimethoprim [From Bactrim] Allergy Bleeding Verified 10/07/19 14:08 ISOTOPOL GLUCOSE Allergy PT HAD Uncoded 10/07/19 14:08 VOMITING & FLU LIKE SX PMH/Surg Hx/FS Hx/Imm Hx Previously Healthy: Yes - Surgical History Surgical History: Yes Surgery Procedure, Year, and Place: uterine FIBROID TUMOR REMOVAL 2010 [place] , feeding tube placement & removal , chemo port inserted + removed, left breast biopsy - Family History Known Family History: Positive: Cardiac Disease, Hypertension Family History: Stroke - Social History Alcohol Use: None Substance Use Type: None Smoking Status (MU): Former Smoker Type: Cigarettes Amount Used/How Often: 1/4 PPD Length of Time of Smoking/Using Tobacco: ON AND OFF 20 YRS Have You Smoked in the Last Year: No When Did the Patient Quit Smoking/Using Tobacco: 2007 - Immunization History Most Recent Influenza Vaccination: Not this season Most Recent Tetanus Shot: UNK Most Recent Pneumonia Vaccination: Never Vaccination Up to Date: Yes Review of Systems All Other Systems Reviewed And Are Negative: Yes Constitutional: Positive: Other - see hpi Skin: Positive: Negative Eyes: Positive: Negative ENT: Positive: Nasal Discharge, Sinus Congestion Respiratory: Positive: Shortness Of Breath, Cough, Other - see hpi Cardiovascular: Positive: Chest Pain - see hpi Physical Exam Vital Signs: Initial Vital Signs Temp 99 F 10/07/19 14:06 Pulse 96 10/07/19 14:06 Resp 16 10/07/19 14:06 BP 135/91 10/07/19 14:06 Pulse Ox 100 10/07/19 14:06 - Assessment/Plan Course Of Treatment: Electronic Warfare Linguist: Enmanuel Poon Daniel, ([id number]) Automatic Presser: MAYA ( NUANCE) Report Date: 10/07/2019 14:26:00 Report Status: Final ====== Start of Report Content Patient Name: IRMA BAIRD Medical Record#: [id number] Ordering Physician: Zachery Garibay MD Acct.#: [id number] : Age: 49 Sex: F Location: [facility] Exam Date: 10/07/19 1413 ADM Status: REG ER Order Information: CHEST PA LAT 2 S Accession Number: [id number] CPT: 01241 HISTORY: CONGESTION COMPARISONS: July 25, 2019, May 11, 2018 VIEWS: 4: Frontal dual-energy and lateral views of the chest. FINDINGS: CARDIOMEDIASTINAL SILHOUETTE: The cardiomediastinal silhouette is normal. ALLYSSA: The allyssa are normal. PLEURA: The costophrenic angles are sharp. No pleural abnormalities are noted. LUNG PARENCHYMA: There is hyperinflation with flattening of the diaphragm and expansion of the AP diameter of the chest. There is an area of nodularity of the right upper lung measuring 1 cm in size. ABDOMEN: The upper abdomen is clear. There is no subphrenic gas. BONES AND SOFT TISSUES: No bone or soft tissue abnormalities are noted. OTHER: None. IMPRESSION: 1 CM RIGHT UPPER LUNG NODULE. RECOMMEND CONSIDERATION OF FURTHER EVALUATION WITH CONTRAST ENHANCED CT OF THE CHEST. ____ <Electronically signed by Enmanuel Poon MD in OV> 10/07/19 142 Dictated By: Enmanuel Poon MD Dictated Date/Time: 10/07/191420 Transcribed Date/Time: 10/07/191420 Copy to: CC:Mert Richard HOSPITAL SECURITY OFFICER; Zachery Garibay MD Imaging - [facility] - [place] [facility] [address] [address] ph [phone] ph [phone]) ph ([phone]) End of Report Content - Clinical Impression Provider Diagnosis: Pulmonary nodule, right, Right-sided chest pain, Bronchitis Discharge ED - Sign-Out/Discharge Documenting (check all that apply): Patient Departure All imaging exams completed and their final reports reviewed: Yes - Discharge Plan Condition: Stable Disposition: HOME Prescriptions: DOXYcycline CAP(*) [DOXYcycline 100MG CAP(*)] 100 mg PO BID #20 cap Patient Education Materials: Pulmonary Nodules (ED), Chest Pain (ED), Acute Bronchitis (ED) Referrals: Mert Richard NP [Primary Care Provider] - Suzi Vines MD [Medical Doctor] - Additional Instructions: FOLLOW UP WITH YOUR SUPERVISOR LEAD REFINERY/ONCOLOGIST AND PRIMARY CARE DOCTOR. GET REEVALUATED SOONER IF NOT IMPROVING OR WORSE; PAIN, SHORTNESS OF BREATH, YOU FEEL ILL OR ANY QUESTIONS OR CONCERNS. - Billing Disposition and Condition Condition: STABLE Disposition: Home
[2019-10-07 14:50] LABS: Influenza A Molecular Negative (Negative); Influenza B Molecular Negative (Negative)
[2019-10-07 15:05] VITALS: BP 145/87
== END 2019-10-07 15:13 | disposition home or self-care (01) ==
LOC: UCCORT 10:32
DX: R07.9 Chest pain, unspecified (principal); J40 Bronchitis, not specified as acute or chronic; R91.1 Solitary pulmonary nodule; Z87.891 Personal history of nicotine dependence; Z91.09 Other allergy status, other than to drugs and biological substances; Z88.0 Allergy status to penicillin; Z88.1 Allergy status to other antibiotic agents; Z88.5 Allergy status to narcotic agent; Z88.8 Allergy status to other drugs, medicaments and biological substances
CPT/HCPCS: 71046; 99212; G0463

== ENCOUNTER 2019-11-07 09:37 | Emergency (ER) | payer OTHER ==
--- OUTSIDE RECORDS SUMMARY | 2019-11-07 11:05 | XMS REPORT | Continuity of Care Document ---
:1970 External Reference #:[id number] Author Name Briana Orellana PA (transmitted by agent of provider Nadya Muller) Address [address] [place] [address] [address] [place] [address] Care Team Providers Name Role Phone Mert Richard, HEALTH NURSE - Family Care Team Information Dub Room Engineer [phone] Problems Description No Information Available Social History Type Date Description Comments Sex Unknown Tobacco Use Start: Unknown End: Unknown Former Cigarette Smoker Smoking Status Reviewed: 05/30/19 Former Cigarette Smoker ETOH Use Rarely consumes alcohol Allergies, Adverse Reactions, Alerts Active Allergies Reaction Severity Comments Date Ciprofloxacin Rash 05/27/2019 Codeine "off this planet" 05/27/2019 Erythromycin "Full body sophie infection" 05/27/2019 Morphine Mild "severe headache and hot flash" 05/27/2019 Sulfamethoxazole Pt does not know 05/27/2019 Tetracycline "Diarrhea" 05/27/2019 Trimethoprim "yeast infection" 05/27/2019 Medications Active Medications SIG Qnty Indications Ordering Provider Date Doxycycline Hyclate 2 Times A Day 14caps Unknown 05/24/2019 100mg Capsules Alprazolam 3 Times Daily as 60tabs Unknown 0.25mg Tablets needed for Anxiety Ibuprofen Every 6 Hours as Unknown 600mg Tablets Needed Levothyroxine Sodium Once Daily 30tabs Unknown 50mcg Tablets Ranitidine 150 Maximum Once Daily as 60tabs Unknown Strength needed for GERD 150mg Tablets Immunizations Description No Information Available Vital Signs Date Vital Result Comment 05/30/2019 10:20am Pain Level 0 05/30/2019 10:15am BP Systolic 122 mmHg BP Diastolic 88 mmHg Heart Rate 95 /min Height 66 inches 5'6" Weight 137.00 lb BMI (Body Mass Index) 22.1 kg/m2 BSA (Body Surface Area) 1.70 m2 [place] body weight in kilograms 59 kg O2 % BldC Oximetry 94 % Results Test Acquired Facility Test Result H/L Range Note Date Absolute 05/24/2019 N2N/CCD Import Absolute 6.64 1.8-7.0 neutrophil count neutrophil count Automated blood 05/24/2019 N2N/CCD Import Automated blood 0.56 Low 1.0- 4.0 lymphocyte count lymphocyte count (number/volume) (number/volume) Blood monocytes 05/24/2019 N2N/CCD Import Blood monocytes 0.24 Low 0.3- 0.9 automated count automated count (number/volume) (number/volume) Automated blood 05/24/2019 N2N/CCD Import Automated blood 0.01 0.0-0.5 eosinophil count eosinophil count Automated blood 05/24/2019 N2N/CCD Import Automated blood 0.01 0.0-0.1 basophil count basophil count (number/volume) (number/volume) Automated blood 05/24/2019 N2N/CCD Import Automated blood 0.03 immature immature granulocyte count granulocyte count (number (number/volume) Automated blood 05/24/2019 N2N/CCD Import Automated blood 0.00 nucleated nucleated erythrocyte count erythrocyte count (count (count/volume) Serum or plasma 05/24/2019 N2N/CCD Import Serum or plasma 102 74-106 glucose glucose measurement measurement (mass/volume) (mass/volume) Serum or plasma 05/24/2019 N2N/CCD Import Serum or plasma 9 7-18 urea nitrogen urea nitrogen measurement measurement (mass/vo (mass/volume) Serum or plasma 05/24/2019 N2N/CCD Import Serum or plasma 0.9 0.6-1.3 creatinine creatinine measurement measurement (mass/volum (mass/volume) Estimated 05/24/2019 N2N/CCD Import Estimated >60 >60 glomerular glomerular filtration rate filtration rate (GFR) non-Afr (GFR) non- GFR/Bsa pred.black 05/24/2019 N2N/CCD Import GFR/Bsa pred.black >60 >60 SerPl MDRD-ArVRat SerPl MDRD-ArVRat Serum or plasma 05/24/2019 N2N/CCD Import Serum or plasma 10.0 urea urea nitrogen/creatinin nitrogen/creatinin e mass rati e mass ratio Sodium SerPl-sCnc 05/24/2019 N2N/CCD Import Sodium SerPl-sCnc 140 136- 145 Serum or plasma 05/24/2019 N2N/CCD Import Serum or plasma 3.6 3.5-5.1 potassium potassium measurement measurement Serum or plasma 05/24/2019 N2N/CCD Import Serum or plasma 107 98-107 chloride chloride measurement measurement Co2 SerPl-sCnc 05/24/2019 N2N/CCD Import Co2 SerPl-sCnc 22 21-32 Serum or plasma 05/24/2019 N2N/CCD Import Serum or plasma 11 8-16 anion gap anion gap Serum or plasma 05/24/2019 N2N/CCD Import Serum or plasma 9.2 8.5-10.1 calcium calcium measurement measurement (mass/volume) (mass/volume) Serum or plasma 05/24/2019 N2N/CCD Import Serum or plasma 7.2 6.4-8.2 protein protein measurement measurement (mass/volume) (mass/volume) Serum or plasma 05/24/2019 N2N/CCD Import Serum or plasma 3.8 3.4-5.0 albumin albumin measurement measurement (mass/volume) (mass/volume) Serum globulin 05/24/2019 N2N/CCD Import Serum globulin 3.4 1.9-4.3 measurement by measurement by calculation calculation (mass/vo (mass/volume) Serum or plasma 05/24/2019 N2N/CCD Import Serum or plasma 1.1 albumin/globulin albumin/globulin mass ratio mass ratio Serum or plasma 05/24/2019 N2N/CCD Import Serum or plasma 0.5 0.2-1.0 total bilirubin total bilirubin measurement (mass/ measurement (mass/volume) Serum or plasma 05/24/2019 N2N/CCD Import Serum or plasma 12 Low 15-37 aspartate aspartate aminotransferase aminotransferase measure measurement (enzymatic activity/volume) Serum or plasma 05/24/2019 N2N/CCD Import Serum or plasma 16 12-78 alanine alanine aminotransferase aminotransferase measureme measurement (enzymatic activity/volume) Serum or plasma 05/24/2019 N2N/CCD Import Serum or plasma 61 45-117 alkaline alkaline phosphatase phosphatase measurement ( measurement (enzymatic activity/volume) Serum or plasma 05/24/2019 N2N/CCD Import Serum or plasma 140 56-289 lipase measurement lipase measurement (enzymatic acti (enzymatic activity/volume) Serum or plasma 05/24/2019 N2N/CCD Import Serum or plasma 4.51 High 0.30- 4.20 thyrotropin thyrotropin measurement measurement (units/vol (units/volume) Serum or plasma 05/24/2019 N2N/CCD Import Serum or plasma 0.9 0.4-1.9 lactate lactate measurement measurement (moles/volume) (moles/volume) Throat specimen 05/24/2019 N2N/CCD Import Throat specimen Negative Negative Streptococcus Streptococcus pyogenes antigen pyogenes antigen det detection by rapid immunoassay Automated urine 05/24/2019 N2N/CCD Import Automated urine [place] Yellow color color ow determination determination Appearance of 05/24/2019 N2N/CCD Import Appearance of Slightly Clear Urine Urine Cloudy Urine glucose 05/24/2019 N2N/CCD Import Urine glucose Negative Negative detection by detection by automated test automated test strip strip Urine bilirubin 05/24/2019 N2N/CCD Import Urine bilirubin Negative Negative detection by detection by automated test automated test strip strip Urine ketone 05/24/2019 N2N/CCD Import Urine ketone Negative Negative detection by detection by automated test automated test strip strip Urine specific 05/24/2019 N2N/CCD Import Urine specific 1.013 1.010-1.0 gravity gravity 30 measurement by measurement by refractometr refractometry Hgb Ur Ql 05/24/2019 N2N/CCD Import Hgb Ur Ql Negative 0-2 Strip.auto Strip.auto Urine pH 05/24/2019 N2N/CCD Import Urine pH 8.5 High 6.5-7.5 measurement by measurement by automated test automated test strip strip Urine protein 05/24/2019 N2N/CCD Import Urine protein Trace Negative detection by detection by automated test automated test strip strip Urine urobilinogen 05/24/2019 N2N/CCD Import Urine urobilinogen <2.0 < 2.0 detection by detection by automated test str automated test strip Urine nitrite 05/24/2019 N2N/CCD Import Urine nitrite Negative Negative detection by detection by automated test automated test strip strip Urine leukocyte 05/24/2019 N2N/CCD Import Urine leukocyte Negative Negative esterase detection esterase detection by automated te by automated test strip Automated 05/24/2019 N2N/CCD Import Automated 7.5 3.1-10.7 leukocyte count leukocyte count (number/volume) (number/volume) Blood erythrocytes 05/24/2019 N2N/CCD Import Blood erythrocytes 4.11 3.90-5.40 automated count automated count (number/volume) (number/volume) Blood hemoglobin 05/24/2019 N2N/CCD Import Blood hemoglobin 12.4 11.6- 15.8 measurement measurement (mass/volume) (mass/volume) Hct VFr Bld Auto 05/24/2019 N2N/CCD Import Hct VFr Bld Auto 35.7 Low 36.0 -46.1 Automated 05/24/2019 N2N/CCD Import Automated 86.9 80.9-99.0 erythrocyte mean erythrocyte mean corpuscular volume corpuscular volume (MCV (MCV) measurement Automated 05/24/2019 N2N/CCD Import Automated 30.2 25.9-32.7 erythrocyte mean erythrocyte mean corpuscular corpuscular hemoglobin hemoglobin (mass per erythrocyte) Automated 05/24/2019 N2N/CCD Import Automated 34.7 High 30.8-34.3 erythrocyte mean erythrocyte mean corpuscular corpuscular hemoglobin hemoglobin concentration measurement (mass/volume) Automated blood 05/24/2019 N2N/CCD Import Automated blood 254 155-360 platelet count platelet count (count/volume) (count/volume) Automated 05/24/2019 N2N/CCD Import Automated 42.4 36-47 erythrocyte erythrocyte distribution width distribution width Automated 05/24/2019 N2N/CCD Import Automated 13.3 11.7-14.4 erythrocyte erythrocyte distribution width distribution width ratio ratio Automated blood 05/24/2019 N2N/CCD Import Automated blood 10.2 8.9-12.4 platelet mean platelet mean volume measurement volume measurement Automated blood 05/24/2019 N2N/CCD Import Automated blood 88.7 High 40.4- 72.8 neutrophils/100 neutrophils/100 leukocytes leukocytes Automated blood 05/24/2019 N2N/CCD Import Automated blood 7.5 Low 20.0- 42.0 lymphocytes/100 lymphocytes/100 leukocytes leukocytes Automated monocyte 05/24/2019 N2N/CCD Import Automated monocyte 3.2 Low 4.3-13.2 % % Automated 05/24/2019 N2N/CCD Import Automated 0.1 0.0-6.6 eosinophil % eosinophil % Automated basophil 05/24/2019 N2N/CCD Import Automated basophil 0.1 0.0- 1.1 % % Automated blood 05/24/2019 N2N/CCD Import Automated blood 0.4 0.0-5.0 immature immature granulocyte count granulocyte count as perc as percentage of total leukocytes Automated blood 05/24/2019 N2N/CCD Import Automated blood 0.0 < 10/ 100 nucleated nucleated WBC erythrocyte count erythrocyte count as per as percentage of total leukocytes Procedures Description No Information Available Medical Devices Description No Information Available Encounters Type Date Location Provider Dx Diagnosis Office Visit 05/30/2019 Surgical Office Briana Orellana PA K64.9 Unspecified 10:30a hemorrhoids E03.9 Hypothyroidism, unspecified K59.00 Constipation, unspecified M54.5 Low back pain R10.10 Upper abdominal pain, unspecified Assessments Date Code Description Provider 05/30/2019 K64.9 Unspecified hemorrhoids Briana Orellana PA 05/30/2019 E03.9 Hypothyroidism, unspecified Briana Orellana PA 05/30/2019 K59.00 Constipation, unspecified Briana Orellana PA 05/30/2019 M54.5 Low back pain Briana Orellana PA 05/30/2019 R10.10 Upper abdominal pain, unspecified Briana Orellana PA Plan of Treatment No Information Available Functional Status Description No Information Available Mental Status Description No Information Available Referrals Description No Information Available
--- OUTSIDE RECORDS SUMMARY | 2019-11-07 11:05 | XMS REPORT | Continuity of Care Document ---
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 needed anxiety Medical Note patient was Jose Manuel, 05/28/2019 treated in ER on Maslexus, N.P. 05/24/19 and diagnosed with pneumonia. She was therefore unable to fly or travel on 05/26/19. Proctofoam HC apply to affected 10gm Jose Manule, 12/11/2018 1-1% Foam area as directed Maschristiannele, N.P. Nystatin apply to affected 30gm Jose Manuel, 10/19/2018 [id number] area bid x 7-10 Mashelle, N.P. Ointment days Triamcinolone apply to lips 2-3 15gm Jose Manuel, 07/24/2018 Acetonide times a day as Mashelle, N.P. 0.1% Ointment directed Lab Request cbc, TSH Dx: Jose Manuel, 12/18/2017 hypothyroid, Mashelle, N.P. anemia B12 Fast Dissolve Jose Manuel, 12/07/2017 5000mcg Mashelle, N.P. Tablets Dispers Levothyroxine Sodium take one tablet Unknown by mouth every 50mcg Tablets day on an empty stomach Immunizations CPT Code Status Date Vaccine Lot # [id number] Refused 05/28/2019 Influenza Vac, Quadrivalent, Split, 0.5mL Dosage, Im Use [id number] Refused 06/25/2018 Influenza Vac, Quadrivalent, Split, 0.5mL Dosage, Im Use Vital Signs Date Vital Result Comment 10/18/2019 11:12am Body Temperature 99.1 F Weight 142.00 lb Heart Rate 82 /min BP Systolic 156 mmHg manual will recheck BP Diastolic 106 mmHg manual will recheck 05/28/2019 11:09am Body Temperature 99.3 F Weight 136.25 lb Heart Rate 90 /min BP Systolic 152 mmHg BP Diastolic 98 mmHg Results Test Acquired Date Facility Test Result H/L Range Note Rapid Influenza 10/07/2019 [facility] Influenza A Negative Negative A & B Molecular Molecular Influenza B Molecular Negative Negative 1 Laboratory test 05/24/2019 [facility] Lactic Acid 0.9 mmol/L Normal 0.4-1.9 2 finding (315)- - Laboratory test 05/24/2019 [facility] Throat Strep NO BETA 3 finding (315)- - Screen STREPTOC <SEE NOTE> Laboratory test 05/24/2019 [facility] Rapid Strep Negative Negative 4 finding (315)- - A Antigen Ua RFX Micro & 05/24/2019 [facility] Urine Color Light- Yellow Yellow Culture II (315)- - Urine Clarity Slightly Cloudy Clear Urine Glucose - Dipstick NEGATIVE mg/dL Negative Urine Bilirubin - Dipstick NEGATIVE Negative Urine Ketone NEGATIVE mg/dL Negative Urine Specific [place] 1.013 Normal 1.010-1.030 Urine Blood NEGATIVE 0-2 Urine PH 8.5 High 6.5-7.5 Urine Protein - Dipstick TRACE mg/dL Negative Urine Urobilinogen - Dipstick < 2.0 mg/dL < 2.0 Urine Nitrite - Dipstick NEGATIVE Negative Urine Leuk Esterase NEGATIVE Negative Source: URINE, CLEAN CAT <SEE NOTE> 5 Lactic Acid 05/24/2019 [facility] Lactic Acid 2.9 mmol/L Critical high 0.4-1.9 (315)- - Lab Reflex >2.0 for Sepsis? Y Laboratory test 05/24/2019 [facility] [place] Total < 0.91 0.00-0.90 6 finding (315)- - AB/Reflex To ISR WB CBS W/Automated 05/24/2019 [facility] White Blood 7.5 K/ uL Normal 3.1-10.7 Diff (315)- - Count Red Blood Count 4.11 M/uL Normal 3.90-5.40 Hemoglobin 12.4 gm/dL Normal 11.6-15.8 Hematocrit 35.7 % Low 36.0-46.1 Mean Cell Volume 86.9 fl Normal 80.9-99.0 Mean Corpuscular HGB 30.2 pg Normal 25.9-32.7 Mean Corpuscular HGB Conc 34.7 g/dL High 30.8-34.3 Platelet Count 254 K/uL Normal 155-360 Red Cell Distri Width SD 42.4 fl Normal 36-47 Red Cell Distri Width %CV 13.3 % Normal 11.7-14.4 Mean Platelet Volume 10.2 fl Normal 8.9-12.4 Neut% 88.7 % High 40.4-72.8 Lymph % 7.5 % Low 20.0-42.0 [place] % 3.2 % Low 4.3-13.2 Eo% 0.1 % Normal 0.0-6.6 Bas% 0.1 % Normal 0.0-1.1 Immature Grans 0.4 % Normal 0.0-5.0 NRBC % 0.0 /100WBC < 10/ 100 WBC Neut# 6.64 K/uL Normal 1.8-7.0 Lymph # 0.56 K/uL Low 1.0-4.0 [place] # 0.24 K/uL Low 0.3-0.9 Eos # 0.01 K/uL Normal 0.0-0.5 Baso # 0.01 K/uL Normal 0.0-0.1 Immature Grans Absolute 0.03 K/uL NRBC # 0.00 K/uL Comprehensive 05/24/2019 [facility] Glucose 102 mg/dL Normal 74-106 Metabolic Panel (315)- - BUN 9 mg/dL Normal 7-18 Creatinine 0.9 mg/dL Normal 0.6-1.3 Glom Filtration Rate, Estimate >60 mL/min >60 If >60 mL/min >60 7 BUN/Creat 10.0 ratio Sodium 140 mmol/L Normal 136-145 Potassium 3.6 mmol/L Normal 3.5-5.1 Chloride 107 mmol/L Normal 98-107 Carbon Dioxide 22 mmol/L Normal 21-32 Anion Gap 11 mEq/L Normal 8-16 Calcium 9.2 mg/dL Normal 8.5-10.1 Total Protein 7.2 g/dL Normal 6.4-8.2 Albumin 3.8 g/dL Normal 3.4-5.0 Globulin 3.4 g/dL Normal 1.9-4.3 Alb/Glob 1.1 ratio Bilirubin,Total 0.5 mg/dL Normal 0.2-1.0 Sgot/Ast 12 U/L Low 15-37 8 SGPT/Alt 16 U/L Normal 12-78 Alkaline Phosphatase 61 U/L Normal 45-117 Laboratory test 05/24/2019 [facility] Lipase 140 U/L Normal 56-289 finding (315)- - Thyroid Stim Hormone 4.51 uIU/mL High 0.30-4.20 1 Advertisement Compositor: [id number] 2 ABDOMINAL PAIN 3 NO BETA STREPTOCOCCI ISOLATED 4 Infection due to Strep A cannot be ruled-out because the antigen present in the sample may be below the detection limit of the test. Culture confirmation of negative result is in progress Method: [employer] Chromatographic immunoassay 5 URINE, CLEAN CATCH 6 Negative <0.91 Equivocal 0.91 - 1.09 Positive >1.09 Performed at: RN - [facility] [address] [id number] [place] Hole Puncher: Lottie Ornelas MD, Phone: [phone] Note: Persistent reduction for 3 months or more in an eGFR <60 mL/min/1.73 m2 defines CKD. Patients with eGFR values >/=60 mL/min/1.73 m2 may also have CKD if evidence of persistent proteinuria is present. The original MDRD equation for estimated GFR is not valid for patients less than 18 years of age. Additional information may be found at www.kdoqi.org. 8 Values below the stated reference ranges of AST and ALT can be seen in normal populations. Clinical correlation is suggested. Procedures Date Code Description Status 10/18/2019 51691 Measure Blood Oxygen Level Single Determination Completed 07/15/2019 [id number] Mammogram Completed 01/04/2018 [id number] Mammogram Completed 12/28/2016 [id number] Mammogram Completed 05/16/2016 [id number] Mammogram Completed 12/03/2015 [id number] Mammogram Completed 11/30/2015 [id number] Mammogram Completed Medical Devices Description No Information Available Encounters Type Date Location Provider Dx Diagnosis Office Visit 10/18/2019 Mert Lala, J20.9 Acute bronchitis, 10:45a N.P. unspecified R07.9 Chest pain, unspecified Office Visit 05/28/2019 11:15a Mert Lala, Z28.21 Immunization not N.P. carried out because of patient refusal E03.9 Hypothyroidism, unspecified J18.8 Other pneumonia, unspecified organism Z91.19 Patient's noncompliance w oth medical treatment and regimen Assessments Date Code Description Provider 10/18/2019 J20.9 Acute bronchitis, unspecified Mert Richard, N.P. 10/18/2019 R07.9 Chest pain, unspecified Mert Richard, N.P. 05/28/2019 Z28.21 Immunization not carried out because of Mert Richard, N.P. patient refusal 05/28/2019 E03.9 Hypothyroidism, unspecified Mert Richard, N.P. 05/28/2019 J18.8 Other pneumonia, unspecified organism Mert Richard, N.P. 05/28/2019 Z91.19 Patient's noncompliance with other medical Mert Richard, N.P. treatment and regimen Plan of Treatment 10/18/2019 - Mert Richard, N.P.J20.9 Acute bronchitis, unspecifiedComments: cont doxycyxline and prednisone as directedrest, plenty of fluidsrecheck no better 3-5 dR07.9 Chest pain, unspecifiedComments:most consistent with non- cardiac CPuse ibuprofen, cough syrup for cough and drink plenty of fluids Functional Status Description No Information Available Mental Status Description No Information Available Referrals Description No Information Available
[2019-11-07 11:15] VITALS: BP 148/91
--- NOTE | 2019-11-07 11:47 | UC ---
UC General HPI - HPI Summary HPI Summary: Two days ago woke with reflux and episode of N/V. then shortly thereafter developed flu like s/s with bodyaches, chills, head congestion and now feels like she has chest cough/cold. Chills and fever No diarrhea. No abdominal pain. Last month she was diagnosed bronchitis, CXR showed a nodule, F/O CT scan with contrast the thought was it was a PNA and took doxycycline. Very worried about a PNA. Just got back from [facility] on . Meds: reviewed - History of Current Complaint Chief Complaint: UCRespiratory Stated Complaint: CHEST CONGESTION Time Seen by Provider: 11/07/19 11:33 Hx Last Menstrual Period: "A year ago" Pain Intensity: 0 - Allergy/Home Medications Allergies/Adverse Reactions: Allergies Allergy/AdvReac Type Severity Reaction Status Date / Time cephalexin Allergy Diarrhea Verified 11/07/19 11:13 clindamycin Allergy Diarrhea Verified 11/07/19 11:13 codeine Allergy Altered Verified 11/07/19 11:13 Mental Status erythromycin base Allergy Diarrhea Verified 11/07/19 11:13 lorazepam Allergy See Comment Verified 11/07/19 11:13 morphine Allergy Headache Verified 11/07/19 11:13 oxycodone Allergy Shakes Verified 11/07/19 11:13 Penicillins Allergy Rash Verified 11/07/19 11:13 Sulfa (Sulfonamide Allergy Bleeding Verified 11/07/19 11:13 Antibiotics) sulfamethoxazole Allergy Bleeding Verified 11/07/19 11:13 [From Bactrim] Tetracyclines Allergy Diarrhea Verified 11/07/19 11:13 trimethoprim [From Bactrim] Allergy Bleeding Verified 11/07/19 11:13 ISOTOPOL GLUCOSE Allergy PT HAD Uncoded 11/07/19 11:13 VOMITING & FLU LIKE SX Home Medications: Home Medications Levothyroxine Sodium 75 mcg PO DAILY 01/30/19 [History Confirmed 11/07/19] Iron 18 mg PO DAILY 07/25/19 [History Confirmed 11/07/19] Magnesium 30 mg PO DAILY 07/25/19 [History Confirmed 11/07/19] Vitamin D3/Vitamin K2 (Mk4) [K2 Plus D3 Tablet] 1 each PO DAILY 07/25/19 [ History Confirmed 11/07/19] Benzonatate CAP* [Tessalon 100 MG CAP*] 100 mg PO TID PRN #30 cap 11/07/19 [Rx] PMH/Surg Hx/FS Hx/Imm Hx Previously Healthy: Yes - Surgical History Surgical History: Yes Surgery Procedure, Year, and Place: uterine FIBROID TUMOR REMOVAL 2010 [place] , feeding tube placement & removal , chemo port inserted + removed, left breast biopsy - Family History Known Family History: Positive: Cardiac Disease, Hypertension Family History: Stroke - Social History Alcohol Use: None Substance Use Type: None Smoking Status (MU): Former Smoker Type: Cigarettes Amount Used/How Often: 1/ PPD Length of Time of Smoking/Using Tobacco: ON AND OFF 20 YRS Have You Smoked in the Last Year: No When Did the Patient Quit Smoking/Using Tobacco: 2007 - Immunization History Most Recent Influenza Vaccination: Not this season Most Recent Tetanus Shot: UNK Most Recent Pneumonia Vaccination: Never Vaccination Up to Date: Yes Review of Systems All Other Systems Reviewed And Are Negative: Yes Constitutional: Positive: Fever, Chills ENT: Positive: Sore Throat, Nasal Discharge Respiratory: Positive: Cough Physical Exam Triage Information Reviewed: Yes Appearance: Well-Appearing Vital Signs: Initial Vital Signs Temp 99.5 F 11/07/19 11:10 Pulse 91 11/07/19 11:10 Resp 17 11/07/19 11:10 BP 148/91 11/07/19 11:10 Pulse Ox 100 11/07/19 11:10 ENT: Positive: Pharyngeal erythema, Nasal congestion, TMs normal Neck: Positive: Supple, Nontender Respiratory: Positive: Lungs clear, Decreased breath sounds Cardiovascular: Positive: RRR, No Murmur Course/Dx - Course Course Of Treatment: This is a 49 yr old with a PMHX of throat cancer who presents with flu like illness Flu: Negative CXR: negative Nontoxic appearing Plan Symptoms consistent with a viral illness Can try tessalon pearls as directed as needed for cough Continue fluids, rest and ibuprofen as needed for pain/fever Can also try a decongestant such as sudafed If symptoms persist or worsen, recommend follow up with a PCP or return to urgent care - Diagnoses Provider Diagnosis: Viral syndrome Discharge ED - Sign-Out/Discharge Documenting (check all that apply): Patient Departure All imaging exams completed and their final reports reviewed: Yes - Discharge Plan Condition: Fair Disposition: HOME Prescriptions: Benzonatate CAP* [Tessalon 100 MG CAP*] 100 mg PO TID PRN #30 cap PRN Reason: Cough Patient Education Materials: Viral Syndrome (ED) Referrals: Mert Richard NP [Primary Care Provider] - Additional Instructions: Symptoms consistent with a viral illness Can try tessalon pearls as directed as needed for cough Continue fluids, rest and ibuprofen as needed for pain/fever Can also try a decongestant such as sudafed If symptoms persist or worsen, recommend follow up with a PCP or return to urgent care - Billing Disposition and Condition Condition: FAIR Disposition: Home
[2019-11-07 12:00] LABS: Influenza A Molecular Negative (Negative); Influenza B Molecular Negative (Negative)
== END 2019-11-07 12:48 | disposition home or self-care (01) ==
LOC: UCCORT 09:37
DX: B34.9 Viral infection, unspecified (principal); M79.10 Myalgia, unspecified site; R09.89 Other specified symptoms and signs involving the circulatory and respiratory systems; J02.9 Acute pharyngitis, unspecified; R05 Cough; R09.81 Nasal congestion; Z88.0 Allergy status to penicillin; Z88.1 Allergy status to other antibiotic agents; Z88.2 Allergy status to sulfonamides; Z88.5 Allergy status to narcotic agent; Z88.8 Allergy status to other drugs, medicaments and biological substances; Z87.891 Personal history of nicotine dependence
CPT/HCPCS: 71046; 99212; G0463